=== PATIENT | male | born 1980 | race Caucasian/White ===

== ENCOUNTER 2016-10-17 13:54 | Emergency (ER) | payer SELFPAY ==
[~2016-10-17] VITALS: Ht 182.9 cm; Wt 89.6 kg
[~2016-10-17 13:54] MED LIST: AMOX875T PO
[2016-10-17 14:02] VITALS: BP 118/80; PULSE 85; RESP 14; TEMP 98.2; O2SAT 98
[2016-10-17] MEDS ORDERED: SODIUM CHLOR 0.9% 1000 ML INJ 1,000 ML IV ONE (14:23)
[2016-10-17] MEDS ORDERED: SODIUM CHLORIDE 0.9% FLUSH 10 ML FLUSH IVF PRN (14:30)
[2016-10-17] MEDS ORDERED: DEXAMETHASONE SOD PHOS 4 MG/ML VIAL IM ONE (14:30)
[2016-10-17 14:40] VITALS: O2SAT 98
[2016-10-17 14:47] LABS: AUTOMATED NEUTROPHIL # 15.1 TH/MM3 (1.8-7.7); BASOPHIL # 0.2 TH/MM3 (0-0.2); BASOPHIL % 1.1 % (0.0-2.0); EOSINOPHIL # 0.1 TH/MM3 (0-0.4); EOSINOPHIL % 0.4 % (0.0-4.0); HEMATOCRIT 49.4 % (39.0-51.0); LYMPH % 7.5 % (9.0-44.0); LYMPHOCYTE # 1.3 TH/MM3 (1.0-4.8); MEAN CELL VOLUME 84.1 FL (80.0-100.0); MEAN CORPUSCULAR HEMOGLOBIN 27.8 PG (27.0-34.0); PLATELET COUNT 224 TH/MM3 (150-450); RED BLOOD COUNT 5.88 MIL/MM3 (4.50-5.90); RED CELL DISTRIBUTION WIDTH 12.6 % (11.6-17.2); WHITE BLOOD COUNT 17.8 TH/MM3 (4.0-11.0)
--- NOTE | 2016-10-17 14:48 | RADHPO ---
EXAM DATE/TIME: 10/17/2016 14:29 [facility] COMPARISON: No previous studies available for comparison. INDICATIONS : Short of breath MEDICAL HISTORY : Asthma SURGICAL HISTORY : None. ENCOUNTER: Initial ACUITY: 3 weeks PAIN SCORE: 0/10 LOCATION: Bilateral chest FINDINGS: A single view of the chest demonstrates the lungs to be symmetrically aerated without evidence of mas s, infiltrate or effusion. The cardiomediastinal contours are unremarkable. Osseous structures are intact. CONCLUSION: Normal examination for a patient of this age. Jamey Gtz MD on October 17, 2016 at 14:45 Board Certified Radiologist. This report was verified electronically.
[2016-10-17] MEDS: RESP: ALBUTEROL 2.5 MG/IPRATROPIUM 0.5 MG NEB (SCH) INH (14:51)
[2016-10-17 14:53] VITALS: O2SAT 98
[2016-10-17 14:55] LABS: POTASSIUM 3.7 MEQ/L (3.5-5.1)
[2016-10-17 14:58] LABS: BICARBONATE 28.4 MEQ/L (21.0-32.0); HEMO FLAGS DIFF FINAL; MAGNESIUM 2.4 MG/DL (1.5-2.5)
[2016-10-17] MEDS ORDERED: DEXAMETHASONE SOD PHOS 4 MG/ML VIAL IV PUSH ONE (15:00)
[2016-10-17] MEDS ORDERED: ALBUAER3 INH (15:07)
--- NOTE | 2016-10-17 15:08 | PD ---
HPI Chief Complaint: Syncope/Near-Syncope Time Seen by Provider: 14:23 Travel History International Travel<30 days: No Contact w/Intl Traveler<30days: No Traveled to known affect area: No History of Present Illness HPI 36-year-old male reports coughing up phlegm for the past 3 weeks or so. He's had no fever. He's had no chest pain. At times he does feel short of breath. He reports a remote history of asthma. He quit smoking about a month ago. Today while working with a chain saw he loss consciousness and fell to the ground for a second. No similar prior episode has occurred. He did not injure himself with the chain saw. PFSH Past Medical History Asthma: Yes (As child) Anxiety: Yes Diminished Hearing: No Psychiatric: Yes (INTERMITTENT EXPLOSIVE D/O) Tetanus Vaccination: > 5 Years Influenza Vaccination: No Past Surgical History Surgical History: No Previous Surgery Social History Alcohol Use: Yes (Occ.) Tobacco Use: No Substance Use: Yes (Marijuana occ.) Allergies-Medications (Allergen,Severity, Reaction): Coded Allergies: No Known Allergies (Unverified , 10/17/16) Reported Meds & Prescriptions Reported Meds & Active Scripts Active Azithromycin 250 Mg Tab 250 Mg PO DIRECTED Take 2 tabs (500 mg) on day 1 then 1 tab daily x 4 days. Proair Hfa 8.5 GM Inh (Albuterol Sulfate) 90 Mcg/Act Aer 2 Puff INH Q6H PRN 108 mcg/actuation Review of Systems Except as stated in HPI: all other systems reviewed are Neg General / Constitutional: No: Fever Cardiovascular: Positive: Syncope Respiratory: Positive: Cough Physical Exam Narrative GENERAL: 36-year-old male well nourished well-developed SKIN: Focused skin assessment warm/dry. HEAD: Atraumatic. Normocephalic. EYES: Pupils equal and round. No scleral icterus. No injection or drainage. ENT: No nasal bleeding or discharge. Mucous membranes pink and moist. NECK: Trachea midline. No JVD. CARDIOVASCULAR: Regular rate and rhythm. No murmur appreciated. RESPIRATORY: No accessory muscle use. Clear to auscultation. Breath sounds equal bilaterally. GASTROINTESTINAL: Abdomen soft, non-tender, nondistended. Hepatic and splenic margins not palpable. MUSCULOSKELETAL: No obvious deformities. No clubbing. No cyanosis. No edema. NEUROLOGICAL: Awake and alert. No obvious cranial nerve deficits. Motor grossly within normal limits. Normal speech. PSYCHIATRIC: Appropriate mood and affect; insight and judgment normal. Data Data Last Documented VS Vital Signs Date Time Temp Pulse Resp B/P Pulse Ox O2 Delivery O2 Flow Rate FiO2 10/17/16 15:35 82 16 122/76 99 Room Air 10/17/16 14:53 21 10/17/16 14:02 98.2 Vital signs reviewed Orders Electrocardiogram (10/17/16 14:23) Basic Metabolic Panel (Bmp) (10/17/16 14:23) Complete Blood Count With Diff (10/17/16 14:23) Magnesium (Mg) (10/17/16 14:23) Chest, Single Ap (10/17/16:23) Ecg Monitoring (10/17/16:23) Iv Access Insert/Monitor (10/17/16:23) Oximetry (10/17/16 14:23) Sodium Chloride 0.9% Flush (Ns Flush) (10/17/16 14:30) Sodium Chlor 0.9% 1000 Ml Inj (Ns 1000 M (10/17/16 14:23) Albuterol-Ipratropium Neb (Duoneb Neb) (10/17/16 14:30) Dexamethasone Inj (Decadron Inj) (10/17/16 14:30) Dexamethasone Inj (Decadron Inj) (10/17/16 15:00) Labs Laboratory Tests Test 10/17/16 14:40 White Blood Count 17.8 TH/MM3 Red Blood Count 5.88 MIL/MM3 Hemoglobin 16.3 GM/DL Hematocrit 49.4 % Mean Corpuscular Volume 84.1 FL Mean Corpuscular Hemoglobin 27.8 PG Mean Corpuscular Hemoglobin 33.0 % Concent Red Cell Distribution Width 12.6 % Platelet Count 224 TH/MM3 Mean Platelet Volume 8.4 FL Neutrophils (%) (Auto) 85.0 % Lymphocytes (%) (Auto) 7.5 % Monocytes (%) (Auto) 6.0 % Eosinophils (%) (Auto) 0.4 % Basophils (%) (Auto) 1.1 % Neutrophils # (Auto) 15.1 TH/MM3 Lymphocytes # (Auto) 1.3 TH/MM3 Monocytes # (Auto) 1.1 TH/MM3 Eosinophils # (Auto) 0.1 TH/MM3 Basophils # (Auto) 0.2 TH/MM3 CBC Comment DIFF FINAL Differential Comment Sodium Level 132 MEQ/L Potassium Level 3.7 MEQ/L Chloride Level 95 MEQ/L Carbon Dioxide Level 28.4 MEQ/L Anion Gap 9 MEQ/L Blood Urea Nitrogen 16 MG/DL Creatinine 1.60 MG/DL Estimat Glomerular Filtration 49 ML/MIN Rate Random Glucose 97 MG/DL Calcium Level 9.9 MG/DL Magnesium Level 2.4 MG/DL [facility] Medical Decision Making Medical Screen Exam Complete: Yes Emergency Medical Condition: Yes Medical Record Reviewed: Yes Differential Diagnosis Syncope, pneumonia, bronchitis, dehydration, arrhythmia Narrative Course CBC & BMP Diagram 10/17/16 14:40 EKG reveals a sinus rhythm at 80, normal axis and intervals Last 24 hours Impressions Chest X-Ray 10/17/16 1423 Signed Impressions: Service Date/Time: Monday, October 17, 2016 14:29 - CONCLUSION: Normal examination for a patient of this age. Jamey Gtz MD Patient reassessed at 3:15 PM. He reports feeling better after receiving breathing treatments. We'll send him home with albuterol and azithromycin. He received a liter of saline. We discussed the need for follow-up in about 3 weeks for repeat creatinine evaluation. Aggressive oral hydration at home discussed. Renal insufficiency d/w patient as well as necessity of follow up. Pt verbalized understanding. Diagnosis Primary Impression: Syncope and collapse Additional Impression: Cough Referrals: [facility] 2 weeks Primary Care Physician 2 days Additional Instructions: You have a choice when it comes to health care, and we are glad that you chose [facility]. Hopefully, we have met your expectations on today's visit. You are welcome to return to [facility] at any time, as we are committed to meeting the health care needs of our community. Med/Other Pt SpecificInfo: Prescription(s) given Scripts Azithromycin 250 Mg [id number] Mg PO DIRECTED #6 TAB Ref 0 Take 2 tabs (500 mg) on day 1 then 1 tab daily x 4 days. Prov:Kyler Amado MD 10/17/16 Albuterol 8.5 GM Inh (Proair Hfa 8.5 GM Inh)90 Mcg/Act Aer2 Puff INH Q6H PRN ( SHORTNESS OF BREATH) #1 INHALER Ref 0 108 mcg/actuation Prov:Kyler Amado MD 10/17/16 Disposition: 01 DISCHARGE HOME Condition: Stable Kyler Amado MD October 17, 2016 15:08
[2016-10-17] MEDS ORDERED: AZIT250T3 PO (15:31)
[2016-10-17 15:35] VITALS: BP 122/76; PULSE 82; RESP 16; O2SAT 99
--- NOTE | 2016-10-18 13:39 | EKG ---
Date Performed: 10/17/2016 Time Performed: 14:55:20 PTAGE: 36 years EKG: Sinus rhythm rSr'(V1) - probable normal variant Septal T wave changes are nonspecific Borderline ECG NO PREVIOUS TRACING DOCTOR: James Rinaldi Interpretating Date/Time 10/18/2016 13:38:41
== END 2016-10-17 15:45 | disposition home or self-care (01) ==
LOC: PHED 13:54
DX: R55 Syncope and collapse (principal); R05 Cough; N28.9 Disorder of kidney and ureter, unspecified; J45.909 Unspecified asthma, uncomplicated; F41.9 Anxiety disorder, unspecified; Z87.891 Personal history of nicotine dependence
CPT/HCPCS: 71010; 80048; 83735; 85025; 93005; 94664; 96374; 99285; J1100; J7030

== ENCOUNTER 2016-12-10 21:02 | Inpatient (IN) | payer SELFPAY ==
[~2016-12-10] VITALS: Ht 182.9 cm; Wt 90.7 kg
[~2016-12-10 21:02] MED LIST changes: +ALBUAER3 INH; -AMOX875T PO; +AZIT250T3 PO
[2016-12-10 21:04] VITALS: BP 130/71; PULSE 94; RESP 16; TEMP 98.6; O2SAT 100
--- NOTE | 2016-12-10 21:58 | PD ---
HPI Chief Complaint: Edema Time Seen by Provider: 21:57 Travel History International Travel<30 days: No Contact w/Intl Traveler<30days: No Traveled to known affect area: No History of Present Illness HPI 36 year old male presents to the emergency department for evaluation of worsening right sided facial abscess. Patient states he first noticed swelling to his right cheek approximately 3 days ago. He states this started as a palpable. He went to [facility] earlier today and was prescribed Bactrim. He had no lab work or imaging completed at that time. He states that he has taken 2 doses of the Bactrim. However, the abscess has tripled in size since he left [facility]. The patient denies any drainage from the area. He denies any dental pain. He does state that it is slightly difficult to swallow. Patient has no chronic medical problems. He is not taking any other medications other than Bactrim. The patient reports severe pain to the right cheek. No fevers or chills. PFSH Past Medical History Asthma: Yes (As child) Anxiety: Yes Diminished Hearing: No Psychiatric: Yes (INTERMITTENT EXPLOSIVE D/O) Social History Alcohol Use: Yes (Occ.) Tobacco Use: No Substance Use: Yes (Marijuana occ.) Allergies-Medications (Allergen,Severity, Reaction): Coded Allergies: No Known Allergies (Unverified , 12/10/16) Reported Meds & Prescriptions Reported Meds & Active Scripts Active Azithromycin 250 Mg Tab 250 Mg PO DIRECTED Take 2 tabs (500 mg) on day 1 then 1 tab daily x 4 days. Proair Hfa 8.5 GM Inh (Albuterol Sulfate) 90 Mcg/Act Aer 2 Puff INH Q6H PRN 108 mcg/actuation Review of Systems Except as stated in HPI: all other systems reviewed are Neg Physical Exam Narrative GENERAL: Well-nourished, well-developed male patient, ambulatory. Afebrile. SKIN: Focused skin assessment warm/dry. HEAD: Normocephalic. Patient has a 7 cm x 7 cm area of swelling to the right cheek without drainage. This is tender to palpation. ENT: Mucosa pink and moist. No erythema or exudates. No uvular edema. No uvular , palatal, or tonsillar deviation. Airway patent. Nasal turbinates appear normal without nasal blood, purulent drainage or septal hematoma. Bilateral tympanic membranes are clear without erythema or perforation. EYES: No scleral icterus. No injection or drainage. NECK: Supple, trachea midline. No JVD or lymphadenopathy. CARDIOVASCULAR: Regular rate and rhythm without murmurs, gallops, or rubs. RESPIRATORY: Breath sounds equal bilaterally. No accessory muscle use. Lungs sounds are clear to auscultation. GASTROINTESTINAL: Abdomen soft, non-tender, nondistended. MUSCULOSKELETAL: No cyanosis, or edema. BACK: Nontender without obvious deformity. No CVA tenderness. Data Data Last Documented VS Vital Signs Date Time Temp Pulse Resp B/P Pulse Ox O2 Delivery O2 Flow Rate FiO2 12/10/16 21:55 89 17 99 Room Air 12/10/16 21:04 98.6 130/71 Orders Iv Access Insert/Monitor (12/10/16 21:54) Complete Blood Count With Diff (12/10/16 21:54) Comprehensive Metabolic Panel (12/10/16 21:54) Blood Culture (12/10/16 21:54) Lactic Acid Sepsis Protocol (12/10/16 21:54) Ct Facial Bones W Iv Contrast (12/10/16 ) Clindamycin Inj (Cleocin Inj) (12/10/16 22:00) Ondansetron Inj (Zofran Inj) (12/10/16 22:00) Sodium Chlor 0.9% 1000 Ml Inj (Ns 1000 M (12/10/16 22:00) Hydromorphone (Dilaudid) (12/10/16 22:15) Hydromorphone Pf Inj (Dilaudid Pf Inj) (12/10/16 22:15) Labs Laboratory Tests Test 12/10/16 22:05 White Blood Count 13.8 TH/MM3 Red Blood Count 4.80 MIL/MM3 Hemoglobin 13.6 GM/DL Hematocrit 40.9 % Mean Corpuscular Volume 85.2 FL Mean Corpuscular Hemoglobin 28.3 PG Mean Corpuscular Hemoglobin 33.2 % Concent Red Cell Distribution Width 13.7 % Platelet Count 150 TH/MM3 Mean Platelet Volume 8.9 FL Neutrophils (%) (Auto) 73.3 % Lymphocytes (%) (Auto) 14.8 % Monocytes (%) (Auto) 8.1 % Eosinophils (%) (Auto) 3.5 % Basophils (%) (Auto) 0.3 % Neutrophils # (Auto) 10.1 TH/MM3 Lymphocytes # (Auto) 2.1 TH/MM3 Monocytes # (Auto) 1.1 TH/MM3 Eosinophils # (Auto) 0.5 TH/MM3 Basophils # (Auto) 0.0 TH/MM3 CBC Comment DIFF FINAL Differential Comment Sodium Level 140 MEQ/L Potassium Level 3.9 MEQ/L Chloride Level 106 MEQ/L Carbon Dioxide Level 25.7 MEQ/L Anion Gap 8 MEQ/L Blood Urea Nitrogen 16 MG/DL Creatinine 0.77 MG/DL Estimat Glomerular Filtration 115 ML/MIN Rate Random Glucose 97 MG/DL Lactic Acid Level 1.8 mmol/L Calcium Level 8.9 MG/DL Total Bilirubin 0.3 MG/DL Aspartate Amino Transf 14 U/L (AST/SGOT) Alanine Aminotransferase 21 U/L (ALT/SGPT) Alkaline Phosphatase 60 U/L Total Protein 6.5 GM/DL Albumin 3.5 GM/DL [facility] Medical Decision Making Medical Screen Exam Complete: Yes Emergency Medical Condition: Yes Medical Record Reviewed: Yes Differential Diagnosis Facial abscess versus cellulitis versus sepsis Narrative Course 36-year-old male presents to the emergency department for evaluation of worsening right facial swelling and pain. He has taken 2 doses of Bactrim. CBC , CMP, blood cultures 2, lactic acid are ordered and pending. CT of the facial bones with IV contrast is ordered and pending. Patient is given normal saline 1 L IV bolus, clindamycin 600 mg IV, Dilaudid 0.5 mg IV, Zofran 4 mg IV. CBC shows leukocytosis 13.8, neutrophils 73.3. CMP is unremarkable. Lactic acid is 1.8. CT is pending. My attending physician, Dr. Ospina, will resume care and disposition. Debbie Castillo Dec 10, 2016 21:58
[2016-12-10] MEDS ORDERED: CLINDAMYCIN INJ 600 MG in SODIUM CHLORIDE 0.9% INJ 100 ML IV ONE (22:00)
[2016-12-10] MEDS ORDERED: SODIUM CHLOR 0.9% 1000 ML INJ 1,000 ML IV ONE (22:00)
[2016-12-10] MEDS ORDERED: ONDANSETRON HCL 4 MG/2 ML VIAL IV PUSH ONE (22:00)
[2016-12-10] MEDS ORDERED: HYDROmorphone HCL 2 MG TAB PO ONE (22:15)
[2016-12-10] MEDS ORDERED: HYDROmorphone HCL PF 1 MG/ML VIAL IV PUSH ONE (22:15)
[2016-12-10 22:25] LABS: AUTOMATED NEUTROPHIL # 10.1 TH/MM3 (1.8-7.7); BASOPHIL % 0.3 % (0.0-2.0); EOSINOPHIL # 0.5 TH/MM3 (0-0.4); EOSINOPHIL % 3.5 % (0.0-4.0); HEMATOCRIT 40.9 % (39.0-51.0); HEMO FLAGS DIFF FINAL; LYMPH % 14.8 % (9.0-44.0); LYMPHOCYTE # 2.1 TH/MM3 (1.0-4.8); MEAN CELL VOLUME 85.2 FL (80.0-100.0); MEAN CORPUSCULAR HEMOGLOBIN 28.3 PG (27.0-34.0); MEAN CORPUSCULAR HGB CONC 33.2 % (32.0-36.0); MONO % 8.1 % (0.0-8.0); NEUT % 73.3 % (16.0-70.0); PLATELET COUNT 150 TH/MM3 (150-450); RED CELL DISTRIBUTION WIDTH 13.7 % (11.6-17.2); WHITE BLOOD COUNT 13.8 TH/MM3 (4.0-11.0)
[2016-12-10 22:38] LABS: ANION GAP 8 MEQ/L (5-15); AST (GOT) 14 U/L (15-37); BICARBONATE 25.7 MEQ/L (21.0-32.0); BLOOD UREA NITROGEN 16 MG/DL (7-18); CHLORIDE 106 MEQ/L (98-107); GLOMERULAR FILTRATION RATE 115 ML/MIN (>89); POTASSIUM 3.9 MEQ/L (3.5-5.1); SODIUM (NA) 140 MEQ/L (136-145)
[2016-12-10 22:41] LABS: ALKALINE PHOSPHATASE 60 U/L (45-117); ALT (GPT) 21 U/L (12-78); TOTAL BILIRUBIN ADULT 0.3 MG/DL (0.2-1.0)
--- NOTE | 2016-12-10 23:03 | PD ---
Physical Exam Date Seen by Provider: Dec 10, 2016 Narrative GENERAL: SKIN: Warm and dry. HEAD: Atraumatic. Normocephalic. EYES: Pupils equal and round. No scleral icterus. No injection or drainage. ENT: No nasal bleeding or discharge. Mucous membranes pink and moist. PATIENT HAS A 7X7CM NONFLUCTUANT, ERYTHEMATOUS, INDURATED, WARM TO TOUCH BUT NONDRAINING ABSCESS TO RIGHT FACE CHEEK NECK: Trachea midline. No JVD. CARDIOVASCULAR: Regular rate and rhythm. RESPIRATORY: No accessory muscle use. Clear to auscultation. Breath sounds equal bilaterally. GASTROINTESTINAL: Abdomen soft, non-tender, nondistended. Hepatic and splenic margins not palpable. MUSCULOSKELETAL: Extremities without clubbing, cyanosis, or edema. No obvious deformities. NEUROLOGICAL: Awake and alert. No obvious cranial nerve deficits. Motor grossly within normal limits. Five out of 5 muscle strength in the arms and legs. Normal speech. PSYCHIATRIC: Appropriate mood and affect; insight and judgment normal. Data Data Last Documented VS Vital Signs Date Time Temp Pulse Resp B/P Pulse Ox O2 Delivery O2 Flow Rate FiO2 12/10/16 21:55 89 17 99 Room Air 12/10/16 21:04 98.6 130/71 Orders Iv Access Insert/Monitor (12/10/16 21:54) Complete Blood Count With Diff (12/10/16 21:54) Comprehensive Metabolic Panel (12/10/16 21:54) Blood Culture (12/10/16 21:54) Lactic Acid Sepsis Protocol (12/10/16 21:54) Ct Facial Bones W Iv Contrast (12/10/16 ) Clindamycin Inj (Cleocin Inj) (12/10/16 22:00) Ondansetron Inj (Zofran Inj) (12/10/16 22:00) Sodium Chlor 0.9% 1000 Ml Inj (Ns 1000 M (12/10/16 22:00) Hydromorphone (Dilaudid) (12/10/16 22:15) Hydromorphone Pf Inj (Dilaudid Pf Inj) (12/10/16 22:15) Labs Laboratory Tests Test 12/10/16 22:05 White Blood Count 13.8 TH/MM3 Red Blood Count 4.80 MIL/MM3 Hemoglobin 13.6 GM/DL Hematocrit 40.9 % Mean Corpuscular Volume 85.2 FL Mean Corpuscular Hemoglobin 28.3 PG Mean Corpuscular Hemoglobin 33.2 % Concent Red Cell Distribution Width 13.7 % Platelet Count 150 TH/MM3 Mean Platelet Volume 8.9 FL Neutrophils (%) (Auto) 73.3 % Lymphocytes (%) (Auto) 14.8 % Monocytes (%) (Auto) 8.1 % Eosinophils (%) (Auto) 3.5 % Basophils (%) (Auto) 0.3 % Neutrophils # (Auto) 10.1 TH/MM3 Lymphocytes # (Auto) 2.1 TH/MM3 Monocytes # (Auto) 1.1 TH/MM3 Eosinophils # (Auto) 0.5 TH/MM3 Basophils # (Auto) 0.0 TH/MM3 CBC Comment DIFF FINAL Differential Comment Sodium Level 140 MEQ/L Potassium Level 3.9 MEQ/L Chloride Level 106 MEQ/L Carbon Dioxide Level 25.7 MEQ/L Anion Gap 8 MEQ/L Blood Urea Nitrogen 16 MG/DL Creatinine 0.77 MG/DL Estimat Glomerular Filtration 115 ML/MIN Rate Random Glucose 97 MG/DL Lactic Acid Level 1.8 mmol/L Calcium Level 8.9 MG/DL Total Bilirubin 0.3 MG/DL Aspartate Amino Transf 14 U/L (AST/SGOT) Alanine Aminotransferase 21 U/L (ALT/SGPT) Alkaline Phosphatase 60 U/L Total Protein 6.5 GM/DL Albumin 3.5 GM/DL [facility] Medical Record Reviewed: Yes Supervised Visit with ENRRIQUE: No Narrative Course PATIENT HAS A MODERATE RIGHT FACIAL ABSCESS WILL REQUIRE IV ABX AND POSSIBLY ENT /PLASTICS TO DRAIN. PT WILL BE ADMITTED TO [facility] FOR FURTHER CARE Diagnosis Primary Impression: MODERATE RIGHT SIDED FACIAL ABSCESS Admitting Information Admitting Physician Requests: Observation Madhu Ospina MD Dec 10, 2016 23:03
[2016-12-11] VITALS: BP 121/68; PULSE 77; RESP 18; TEMP 98.8; O2SAT 98
[2016-12-11] MEDS ORDERED: IOHEXOL 350 MG/ML 10 ML VIAL (for RAD DIAG) IV ONE (00:29)
[2016-12-11] MEDS ORDERED: ACETAMINOPHEN 325 MG TAB PO PRN ×2 (00:30)
[2016-12-11] MEDS ORDERED: HYDROmorphone HCL PF 1 MG/ML VIAL IV PRN (00:30)
[2016-12-11] MEDS ORDERED: NALOXONE HCL 0.4 MG/ML AMP IV PRN (00:30)
[2016-12-11] MEDS ORDERED: SODIUM CHLORIDE 0.9% FLUSH 10 ML FLUSH IV FLUSH PRN (00:30)
[2016-12-11] MEDS ORDERED: MAGNESIUM HYDROXIDE SUSP 30 ML CUP PO PRN (00:30)
[2016-12-11] MEDS ORDERED: LACTULOSE SYRUP 20 GM/30 ML CUP PO PRN (00:30)
[2016-12-11] MEDS ORDERED: ONDANSETRON HCL 4 MG/2 ML VIAL IVP PRN (00:30)
[2016-12-11] MEDS ORDERED: BISACODYL 10 MG SUPP RECTAL PRN (00:30)
[2016-12-11] MEDS ORDERED: SENNOSIDES 8.6 MG TAB PO PRN (00:30)
--- NOTE | 2016-12-11 00:47 | HHI.HP ---
[facility] Service [facility] Primary Care Physician No Primary Care Physician Admission Diagnosis FACIAL ABSCESS Diagnoses: Chief Complaint: facial swelling and pain Travel History International Travel<30 Days: No Contact w/Intl Traveler <30 Da: No Traveled to Known Affected Are: No History of Present Illness Written by Victoria Soriano, acting as scribe for Dr. Wilson] on 12/11/16 at 00: 47. 36 y/o male with no medical history presents to the ED with complaints of right cheek swelling and pain. Patient states he has a pimple that he tried to pop and his face began to swell. He went to [facility] and was diagnosed with cellulitis and sent home on Bactrim. Patient states he took 2 doses and the pain worsened so he came here. He only has noticed a little clear discharge when he tried to pop it. Denies any fevers, but states he has had chills. Denies any chest pain, or sob. Review of Systems Constitutional: COMPLAINS OF: Chills, DENIES: Fever Respiratory: DENIES: Cough, Sputum production, Shortness of breath Cardiovascular: DENIES: Chest pain, Lower Extremity Edema Gastrointestinal: DENIES: Nausea, Vomiting Genitourinary: DENIES: Hematuria, Dysuria Musculoskeletal: DENIES: Back pain, Neck pain Integumentary: DENIES: Rash Hematologic/lymphatic: DENIES: Lymphadenopathy Immunologic/allergic: DENIES: Urticaria Neurologic: DENIES: Headache Past Family Social History Past Medical History childhood asthma, but states he grew out of it. Past Surgical History Patient denies any surgical history Reported Medications Reported Meds & Active Scripts Active Azithromycin 250 Mg Tab 250 Mg PO DIRECTED Take 2 tabs (500 mg) on day 1 then 1 tab daily x 4 days. Proair Hfa 8.5 GM Inh (Albuterol Sulfate) 90 Mcg/Act Aer 2 Puff INH Q6H PRN 108 mcg/actuation Allergies: Coded Allergies: No Known Allergies (Unverified , 12/10/16) Active Ordered Medications Current Medications Medications (Trade) Dose Ordered Sig/Julieta Route Start Time Stop Time Status Last Admin (NS Flush) 2 ml UNSCH PRN IV FLUSH 12/11/16 00:30 (NS Flush) 2 ml BID IV FLUSH 12/11/16 09:00 (Tylenol) 650 mg Q4H PRN PO 12/11/16 00:30 (Zofran Inj) 4 mg Q6H PRN IVP 12/11/16 00:30 (Tylenol) 650 mg Q6H PRN PO 12/11/16 00:30 (Dilaudid Pf Inj) 0.2 mg Q3H PRN IV 12/11/16 00:30 (Dilaudid Pf Inj) 0.5 mg Q3H PRN IV 12/11/16 00:30 (Narcan Inj) 0.4 mg UNSCH PRN IV 12/11/16 00:30 (Milk Of Magnesia Liq) 30 ml Q12H PRN PO 12/11/16 00:30 (Senokot) 17.2 mg Q12H PRN PO 12/11/16 00:30 (Dulcolax Supp) 10 mg DAILY PRN RECTAL 12/11/16 00:30 Lactulose 30 ml 30 ml DAILY PRN PO 12/11/16 00:30 (Cleocin Inj/NS Inj) 104 ml @ 208 mls/hr Q6H IV 12/11/16 04:00 Family History Grandmother: [place] Social History Tobacco use: 1PPD Alcohol use: rarely Illicit drug use: marijuana Physical Exam Vital Signs Vital Signs Date Time Temp Pulse Resp B/P Pulse Ox O2 Delivery O2 Flow Rate FiO2 12/10/16 21:55 89 17 99 Room Air 12/10/16 21:04 98.6 94 16 130/71 100 Room Air Physical Exam GENERAL: This is a well-nourished, well-developed patient, in no apparent distress. SKIN: No rashes, ecchymoses or lesions. Cool and dry. Rt cheek with erythema and swelling. HEAD: Atraumatic. Normocephalic. No temporal or scalp tenderness. EYES: Pupils equal round and reactive. Extraocular motions intact. No scleral icterus. No injection or drainage. ENT: Nose without bleeding, purulent drainage or septal hematoma. Throat without erythema, tonsillar hypertrophy or exudate. Uvula midline. Airway patent. NECK: Trachea midline. No JVD or lymphadenopathy. Supple, nontender, no meningeal signs. CARDIOVASCULAR: Regular rate and rhythm without murmurs, gallops, or rubs. RESPIRATORY: Wheezing throughout, Breath sounds equal bilaterally. No rales, or rhonchi. GASTROINTESTINAL: Abdomen soft, non-tender, nondistended. No hepato-splenomegaly , or palpable masses. No guarding. MUSCULOSKELETAL: Extremities without clubbing, cyanosis, or edema. No joint tenderness, effusion, or edema noted. No calf tenderness. NEUROLOGICAL: Awake and alert. Motor and sensory grossly within normal limits. Normal speech. Laboratory Laboratory Tests Test 12/10/16 22:05 White Blood Count 13.8 Red Blood Count 4.80 Hemoglobin 13.6 Hematocrit 40.9 Mean Corpuscular Volume 85.2 Mean Corpuscular Hemoglobin 28.3 Mean Corpuscular Hemoglobin 33.2 Concent Red Cell Distribution Width 13.7 Platelet Count 150 Mean Platelet Volume 8.9 Neutrophils (%) (Auto) 73.3 Lymphocytes (%) (Auto) 14.8 Monocytes (%) (Auto) 8.1 Eosinophils (%) (Auto) 3.5 Basophils (%) (Auto) 0.3 Neutrophils # (Auto) 10.1 Lymphocytes # (Auto) 2.1 Monocytes # (Auto) 1.1 Eosinophils # (Auto) 0.5 Basophils # (Auto) 0.0 CBC Comment DIFF FINAL Differential Comment Sodium Level 140 Potassium Level 3.9 Chloride Level 106 Carbon Dioxide Level 25.7 Anion Gap 8 Blood Urea Nitrogen 16 Creatinine 0.77 Estimat Glomerular Filtration 115 Rate Random Glucose 97 Lactic Acid Level 1.8 Calcium Level 8.9 Total Bilirubin 0.3 Aspartate Amino Transf 14 (AST/SGOT) Alanine Aminotransferase 21 (ALT/SGPT) Alkaline Phosphatase 60 Total Protein 6.5 Albumin 3.5 Date/Time Procedure Status Source Growth 12/10/16 22:05 Aerobic Blood Culture Received Blood Peripheral Pending 12/10/16 22:05 Anaerobic Blood Culture Received Blood Peripheral Pending Result Diagram: 12/10/16220412/10/162204 Assessment and Plan Problem List: (1) Facial cellulitis ICD Code: L03.211 Status: Acute (2) Leukocytosis ICD Code: D72.829 Status: Acute Assessment and Plan 36 y/o male with no medical history presents to the ED with complaints of right cheek swelling and pain. Facial cellulitis Maxillofacial CT shows no fracture, no abscess -Pain management with IV Dilaudid -IV clindamycin Leukocytosis, WBCs 13.8, suspected due to facial cellulitis -Tylenol for fevers -CBC in a.m. -Blood cultures pending -Continue antibiotics as above DVT prophylaxis: SCDs This note was transcribed by lulu Soriano. I, Dr. Tylor Lester personally performed the history, physical exam, and medical decision making; and confirmed the accuracy of the information in the transcribed note. Authenticated by Dr. Tylor Lester on 12/11/16 at 04:09. Discussed Condition With Patient Victoria Soriano Dec 11, 2016 00:47 Tylor Lester MD Dec 11, 2016 04:09
--- NOTE | 2016-12-11 02:40 | RADRPT ---
EXAM DATE/TIME: 12/11/2016 00:27 [facility] COMPARISON: No previous studies available for comparison. INDICATIONS : Right facial swelling and pain; possible abscess. IV CONTRAST: 70 cc Omnipaque 350 (iohexol) IV RADIATION DOSE: 49.06 CTDIvol (mGy) MEDICAL HISTORY : None SURGICAL HISTORY : None. ENCOUNTER: Initial ACUITY: 3 days PAIN SCALE: 5/10 LOCATION: Right facial TECHNIQUE: Volumetric scanning of the facial bones was performed. Using automated exposure control and adjustme nt of the mA and/or kV according to patient size, radiation dose was kept as low as reasonably achiev able to obtain optimal diagnostic quality images. DICOM format image data is available electronicall y for review and comparison. FINDINGS: ORBITS: The orbital and infraorbital osseous structures are intact. The retroconal structures have a normal configuration. No radiopaque foreign bodies are seen. NASAL BONE: The nasal bone and maxillary spine are intact ZYGOMATIC ARCHES: Symmetric without evidence of fracture. SINUSES: The maxillary, ethmoid and frontal sinuses are intact. No air-fluid levels seen. Mucosal thickening within the floor the right maxillary sinus NASAL CAVITY: The nasal septum is deviated to the left. The lacrimal ducts are intact. SOFT TISSUES: No radiopaque foreign bodies seen. Facial soft-tissue swelling is seen. INTRACRANIAL: No intracranial air seen. CRIBIFORM PLATE: Grossly intact. CONCLUSION: 1. No facial fracture Griffin Sung MD on December 11, 2016 at 1:27 Board Certified Radiologist. This report was verified electronically.
[2016-12-11] MEDS: CLINDAMYCIN INJ 600 MG in SODIUM CHLORIDE 0.9% INJ 100 ML IV SCH ×4 (03:58→21:34)
[2016-12-11] MEDS: HYDROmorphone HCL PF 1 MG/ML VIAL IV PRN ×5 (03:59→22:53)
[2016-12-11 04:43] VITALS: BP 113/64; PULSE 60; RESP 18; TEMP 98.5; O2SAT 98
[2016-12-11 05:16] LABS: AUTOMATED NEUTROPHIL # 10.3 TH/MM3 (1.8-7.7); BASOPHIL % 0.2 % (0.0-2.0); EOSINOPHIL # 0.5 TH/MM3 (0-0.4); EOSINOPHIL % 3.5 % (0.0-4.0); HEMATOCRIT 37.7 % (39.0-51.0); HEMO FLAGS DIFF FINAL; LYMPH % 12.7 % (9.0-44.0); LYMPHOCYTE # 1.8 TH/MM3 (1.0-4.8); MEAN CORPUSCULAR HEMOGLOBIN 28.1 PG (27.0-34.0); MONO % 9.9 % (0.0-8.0); NEUT % 73.7 % (16.0-70.0); PLATELET COUNT 140 TH/MM3 (150-450); RED BLOOD COUNT 4.44 MIL/MM3 (4.50-5.90); RED CELL DISTRIBUTION WIDTH 13.4 % (11.6-17.2)
[2016-12-11 07:04] VITALS: BP 120/66; PULSE 78; RESP 14; TEMP 99.1; O2SAT 97
[2016-12-11] MEDS: SODIUM CHLORIDE 0.9% FLUSH 10 ML FLUSH IV FLUSH SCH ×2 (08:56→21:49)
[2016-12-11] MEDS ORDERED: ACETAMINOPHEN/HYDROcodone 325 MG/7.5 MG TAB PO PRN (10:15)
[2016-12-11] MEDS ORDERED: ACETAMINOPHEN/HYDROcodone 325 MG/5 MG TAB PO PRN (10:15)
--- NOTE | 2016-12-11 10:27 | HHI.PR ---
Subjective Remarks Follow up for facial cellulitis. The patient reports continued right facial swelling, warmth, and pain; not much improved overnight after receiving 2 doses of IV antibiotics. Denies any drainage. He reports feeling feverish but no documented fevers, Tmax 99.1. The patient feels the swelling is slightly worse around the right eye today, but he denies any pain of the eyes with movement and EOM are intact. He denies any problem chewing or swallowing. He only took 2 doses of the Bactrim he was prescribed prior to coming to the hospital. Objective Vitals Vital Signs Date Time Temp Pulse Resp B/P Pulse Ox O2 Delivery O2 Flow Rate FiO2 12/11/16 07:04 99.1 78 14 120/66 97 12/11/16 04:43 98.5 60 18 113/64 98 12/11/16 00:00 98.8 77 18 121/68 98 12/10/16 21:55 89 17 99 Room Air 12/10/16 21:04 98.6 94 16 130/71 100 Room Air Result Diagram: 12/11/16 0430 12/10/16 2205 Imaging Last Impressions Maxillofacial CT 12/10/16 0000 Signed Impressions: Service Date/Time: Sunday, December 11, 2016 00:27 - CONCLUSION: 1. No facial fracture Griffin Sung MD Objective Remarks GENERAL: Well-nourished, well-developed middle aged male patient in [facility]. SKIN: Warm and dry. Diffuse Right facial/buccal erythema,edema,warmth, extended into the right preseptal area and down into the right anterior cervical area. HEENT: Normocephalic. Atraumatic. Pupils equal and round. EOMI and nontender with movements. No injection or drainage. Mucous membranes pink and moist. NECK: Supple. Trachea midline. CARDIOVASCULAR: Regular rate and rhythm. S1, S2 noted. No murmur appreciated. RESPIRATORY: No accessory muscle use. Clear to auscultation. Breath sounds equal bilaterally. GASTROINTESTINAL: Abdomen soft, non-tender, nondistended. Normoactive bowel sounds x4. MUSCULOSKELETAL: No obvious deformities. Extremities without clubbing, cyanosis , or edema. NEUROLOGICAL: Awake and alert. No obvious cranial nerve deficits. Motor grossly within normal limits. Normal speech. PSYCHIATRIC: Appropriate mood and affect; insight and judgment normal. Medications and IVs Current Medications Medications (Trade) Dose Ordered Sig/Julieta Route Start Time Stop Time Status Last Admin (NS Flush) 2 ml UNSCH PRN IV FLUSH 12/11/16 00:30 12/11/16 03:58 (NS Flush) 2 ml BID IV FLUSH 12/11/16 09:00 (Tylenol) 650 mg Q4H PRN PO 12/11/16 00:30 (Zofran Inj) 4 mg Q6H PRN IVP 12/11/16 00:30 (Tylenol) 650 mg Q6H PRN PO 12/11/16 00:30 (Narcan Inj) 0.4 mg UNSCH PRN IV 12/11/16 00:30 (Milk Of Magnesia Liq) 30 ml Q12H PRN PO 12/11/16 00:30 (Senokot) 17.2 mg Q12H PRN PO 12/11/16 00:30 (Dulcolax Supp) 10 mg DAILY PRN RECTAL 12/11/16 00:30 Lactulose 30 ml 30 ml DAILY PRN PO 12/11/16 00:30 (Cleocin Inj/NS Inj) 104 ml @ 208 mls/hr Q6H IV 12/11/16 04:00 12/11/16 08:56 (Toradol Inj) 15 mg Q6HR IV PUSH 12/11/16 12:00 12/15/16 11:59 (Dilaudid Pf Inj) 0.5 mg Q4H PRN IV 12/11/16 13:30 UNV ([place] 5-325 Mg) 1 tab Q4H PRN PO 12/11/16 10:15 UNV ([place] 7.5-325 Mg) 1 tab Q4H PRN PO 12/11/16 10:15 UNV A/P Problem List: (1) Facial cellulitis ICD Code: L03.211 Status: Acute (2) Leukocytosis ICD Code: D72.829 Status: Acute Assessment and Plan 36 y/o male with no medical history presents to the ED with complaints of right cheek swelling and pain. Severe Facial Cellulitis with Sepsis: Maxillofacial CT w/IV contrast images reviewed and discussed with radiologist, does not show abscess, only significant soft tissue swelling/cellulitis. Patient met sepsis criteria upon arrival with WBC 13.8K and tachycardic HR in 90s, however clinically stable and lactic acid 1.8. -Pain management with [place] prn and IV Dilaudid prn breakthrough pain -Continue antibiotics IV clindamycin -Monitor blood cultures -Still with significant swelling today, started on IV Toradol 15mg q6h scheduled for inflammation -Monitor closely -1330hrs: patient and mother now reporting worsening swelling and pain/ pressure behind the right eye -check facial soft tissue MRI with and without contrast -start on IV Decadron 4mg q8h -discussed with Dr. Finney who also saw the patient, consider infectious disease consultation tomorrow if not much improvement -1520hrs: Facial Soft Tissue MRI showed extensive cellulitis right face/ cheek with small 1.5cm fluid signal, may represent small abscess. -will consult oral/facial surgeon Dr. Medina Leukocytosis: WBCs 13.8, suspected due to facial cellulitis -Tylenol prn fevers -CBC shows continued leukocytosis with WBC 14K -Blood cultures pending -Continue antibiotics as above DVT prophylaxis: SCDs Discharge Planning Discussed with case management, meets inpatient criteria, will change to inpatient. Likely discharge in 2-3 days. Attending Statement The exam, history, and the medical decision-making described in the above note were completed with the assistance of the mid-level provider. I reviewed and agree with the findings presented. I attest that I had a [id number] encounter with the patient on the same day, and personally performed and documented my assessment and findings in the medical record. Patient seen and examined. He reports no cord is not helping with the facial pain. No fevers or chills. No problems swallowing. On exam, the patient has a small dried wound over the right cheek. There is impressing surrounding swelling extending below the right eye down to the neck. There is tender submental lymphadenopathy. Agree with plan as above. Add Decadron to help with swelling. Since patient reported worsening of symptoms, MRI has been ordered. Continue to monitor closely. Continue antibiotics. Follow cultures. If no improvement by tomorrow , would consult infectious disease. Zina Flood PA-C Dec 11, 2016 10:27 Katrin Finney MD Dec 11, 2016 15:24
[2016-12-11 11:06] VITALS: BP 121/66; PULSE 67; RESP 16; TEMP 99.2; O2SAT 98
[2016-12-11] MEDS: REMOVE OLD PATCH T-DERMAL SCH (11:30)
[2016-12-11] MEDS: NICOTINE 21 MG/24 HR PATCH T-DERMAL SCH (12:03)
[2016-12-11] MEDS: KETOROLAC TROMETHAMINE 30 MG/ML (IVP) VIAL IV PUSH SCH ×3 (12:04→22:53)
[2016-12-11] MEDS: DEXAMETHASONE SOD PHOS 4 MG/ML VIAL IV PUSH SCH ×2 (14:00→21:33)
[2016-12-11] MEDS ORDERED: DEXAMETHASONE SOD PHOS 4 MG/ML VIAL IV PUSH SCH (14:00)
[2016-12-11] MEDS ORDERED: GADODIAMIDE PF 287 MG/ML 20 ML VIAL (for RAD MRI) IV ONE (14:13)
--- NOTE | 2016-12-11 14:47 | RADRPT ---
EXAM DATE/TIME: 12/11/2016 13:47 [place] COMPARISON: CT FACIAL BONES W CONTRAST, December 11, 2016, 0:27. INDICATIONS : Abscess. CONTRAST: 15 cc Omniscan (gadodiamide) IV MEDICAL HISTORY : None. SURGICAL HISTORY : None. ENCOUNTER: Initial ACUITY: 4-6 days PAIN SCORE: 5/10 LOCATION: Right Face TECHNIQUE: Multi-weighted, multi-axial MR images of the facial soft tissue both before and after the administrat ion of intravenous contrast. FINDINGS: Extensive inflammatory changes around the right face characteristic of cellulitis. There is a focal, 1.6 cm area of diminished T1 signal intensity, increased inversion recovery signal in the regional en hancement in the anterior right cheek which may represent a small fluid collection/early abscess. No mass lesions. CONCLUSION: 1. MR findings characteristic of extensive cellulitis in the right face/cheek region. 2. Small, 1.5 cm area of fluid signal intensity in the anterior right cheek which may represent a sma ll abscess. This appears loculated. Korey Toledo MD on December 11, 2016 at 14:39 Board Certified Radiologist. This report was verified electronically.
[2016-12-11 16:00] VITALS: BP 142/84; PULSE 67; RESP 20; TEMP 98.9; O2SAT 98
[2016-12-11] MEDS: oxyCODONE/ACETAMINOPHEN 7.5 MG/325 MG TAB PO PRN ×2 (17:18→23:41)
[2016-12-11] MEDS ORDERED: LIDOCAINE 2%/EPINEPHrine 1:100,000 30ML MDV OTHER SCH (18:30)
--- NOTE | 2016-12-11 19:22 | HHI.PR ---
Immediate Post Op Note Procedure Date: Dec 11, 2016 Pre Op Diagnosis: right facial cellulitis/abscess Post Op Diagnosis: [place] Surgeon: Jhonathan Medina Operations Director(s): pt's nurse irvin Procedure: I&D right facial cellulitis/abscess Findings: pus Complications: none Specimen(s) removed: pus - sent for culture Estimated blood loss: minimal Anesthesia: Local (2%lidocaine with 1:100,000 epi 2cc) Drains: [place] (1/4 inch x 1) Patient Condition: Good Date/Time of Procedure: SEE SURGICAL CARE RECORD Jhonathan Medina DMD Dec 11, 2016 19:22
--- NOTE | 2016-12-11 19:33 | MB ---
cc: LOUISE MEDINA DMD DATE OF CONSULTATION 12/11/2016 REASON FOR CONSULTATION Right facial cellulitis. HISTORY OF THE PRESENT ILLNESS This is a 36-year-old male with a past history of popping pimples, who recently popped a pimple on the right side of his face about four days ago. He then proceeded to [facility] in [facility] yesterday morning as the swelling began to get bigger. The patient indicates that they sent him home with Bactrim and did not do anything there. So then yesterday evening the welling on right side of the face got bigger and bigger so he proceeded to come here to [place]. He reported this morning that some little discharge did come out of the site. I have seen and examined the patient this evening. The patient's nurses are at bedside. Alert, awake and oriented x3. Denies any fever, chills, nausea, vomiting, shortness of breath and difficulty breathing or difficulty speaking. PAST MEDICAL HISTORY Denies. MEDICATIONS Denies. ALLERGIES Denies. SOCIAL HISTORY Denies any alcohol, tobacco or any illicit drug use. PHYSICAL EXAMINATION HEENT: Exam of the face on the right side shows a moderate amount of facial swelling that is noted. It is tender to palpation. And there is an area that is appears to be soft, right in the center where the pimple was popped. There is erythema around that site. The swelling is and the rest of the cellulitis is soft on his right side of the face. No gross tenderness to palpation. It is well-circumscribed and just appears to be just localized to the right side of his face, this appeared to his mandible. Some areas are still firm around this site. The eyes are open. No neck edema noted. Trachea midline. IMAGING CT scan of the facial bones shows a swelling on the right side of the face and an area of a collection that I could see on his right cheek. This appears to be the collection / abscess. LABORATORY DATA White count is 13.8. H&H is 13.6, hematocrit is 14.9 with platelets of 150. Temperature is 98.9, pulse is 67, respiratory rate 20, blood pressure 142/84 with oxygen saturation of 98%. IMPRESSION AND PLAN This is a 36-year-old young male who is status post 4 days popping a pimple on the right side now presents with a right-sided facial cellulitis / abscess. We will plan to incise and drain and then get a culture depending on how much purulence comes out. Benefits, risks indication of the procedure, the procedure in detail and the options of no treatment including alternatives were discussed with this patient. Risks are not limited to any postop pain, infection, bleeding, damage to the adjacent soft tissue, hard tissue, anesthesia complications, recurrence of the infection, further surgical procedures as required. All questions and concerns were addressed. Consent is signed in the chart. Please note that the patient has been advised not to pop any more pimples. Louise Medina DMD RRT/ADY /7:15 PM /7:23 PM
[2016-12-11 20:00] VITALS: BP 138/72; PULSE 67; RESP 17; TEMP 98.1; O2SAT 97
[2016-12-11] MEDS: DOCUSATE SODIUM 50 MG/SENNA 8.6 MG TAB PO SCH (21:33)
[2016-12-12] VITALS: BP 112/59; PULSE 63; RESP 18; TEMP 97.3; O2SAT 93
[2016-12-12] MEDS: CLINDAMYCIN INJ 600 MG in SODIUM CHLORIDE 0.9% INJ 100 ML IV SCH ×3 (03:54→15:35)
[2016-12-12] MEDS: HYDROmorphone HCL PF 1 MG/ML VIAL IV PRN ×5 (03:55→22:15)
[2016-12-12 04:00] VITALS: BP 121/69; PULSE 58; RESP 18; TEMP 96; O2SAT 98
[2016-12-12] MEDS: DEXAMETHASONE SOD PHOS 4 MG/ML VIAL IV PUSH SCH (05:57)
[2016-12-12] MEDS: KETOROLAC TROMETHAMINE 30 MG/ML (IVP) VIAL IV PUSH SCH ×4 (05:58→23:25)
[2016-12-12] MEDS: oxyCODONE/ACETAMINOPHEN 7.5 MG/325 MG TAB PO PRN ×4 (06:02→20:02)
[2016-12-12 08:00] VITALS: BP 108/60; PULSE 62; RESP 16; TEMP 96.8; O2SAT 99
--- NOTE | 2016-12-12 08:47 | HHI.PR ---
Subjective Remarks The patient says that he feels a lot better. He says pain control is improved. He has less swelling on the right side of his face. He was able to sleep overnight. He has been tolerating diet. Discussed with nursing. He was anxious to go home. Objective Vitals Vital Signs Date Time Temp Pulse Resp B/P Pulse Ox O2 Delivery O2 Flow Rate FiO2 12/12/16 08:00 96.8 62 16 108/60 99 12/12/16 04:00 96.0 58 18 121/69 98 12/12/16 00:00 97.3 63 18 112/59 93 12/11/16 20:00 98.1 67 17 138/72 97 12/11/16 19:30 18 12/11/16 19:30 18 12/11/16 19:30 18 12/11/16 16:00 98.9 67 20 142/84 98 12/11/16 11:06 99.2 67 16 121/66 98 I/O 12/11/16 12/11/16 12/11/16 12/12/16 12/12/16 12/12/16 07:00 15:00 23:00 07:00 15:00 23:00 Intake Total 720 ml 480 ml Balance 720 ml 480 ml Intake Oral 720 ml 480 ml # Voids 6 4 Result Diagram: 12/11/16 0430 12/10/16 2205 Imaging Last Impressions Face MRI 12/11/16 0000 Signed Impressions: Service Date/Time: Sunday, December 11, 2016 13:47 - CONCLUSION: 1. MR findings characteristic of extensive cellulitis in the right face/cheek region. 2. Small , 1.5 cm area of fluid signal intensity in the anterior right cheek which may represent a small abscess. This appears loculated. Korey Toledo MD Maxillofacial CT 12/10/16 0000 Signed Impressions: Service Date/Time: Sunday, December 11, 2016 00:27 - CONCLUSION: 1. No facial fracture Griffin Sung MD Objective Remarks GENERAL: Well-nourished, well-developed patient in [facility]. SKIN: Warm and dry. Diffuse Right facial/buccal erythema,edema,warmth,extending into the right preseptal area and down into the right anterior cervical area. Bandage and drain in place. HEENT: Normocephalic. Atraumatic. Pupils equal and round. EOMI and nontender with movements. No injection or drainage. Mucous membranes pink and moist. NECK: Supple. Trachea midline. CARDIOVASCULAR: Regular rate and rhythm. S1, S2 noted. No murmur appreciated. RESPIRATORY: No accessory muscle use. Mild expiratory wheezing. GASTROINTESTINAL: Abdomen soft, non-tender, nondistended. Normoactive bowel sounds x4. MUSCULOSKELETAL: No obvious deformities. Extremities without clubbing, cyanosis , or edema. NEUROLOGICAL: Awake and alert. No obvious cranial nerve deficits. Motor grossly within normal limits. Normal speech. PSYCHIATRIC: Appropriate mood and affect; insight and judgment normal. Procedures I&D 12/11 Medications and IVs Current Medications Medications (Trade) Dose Ordered Sig/Julieta Route Start Time Stop Time Status Last Admin (NS Flush) 2 ml UNSCH PRN IV FLUSH 12/11/16 00:30 12/11/16 03:58 (NS Flush) 2 ml BID IV FLUSH 12/11/16 09:00 12/11/16 21:49 (Tylenol) 650 mg Q4H PRN PO 12/11/16 00:30 (Zofran Inj) 4 mg Q6H PRN IVP 12/11/16 00:30 (Tylenol) 650 mg Q6H PRN PO 12/11/16 00:30 (Narcan Inj) 0.4 mg UNSCH PRN IV 12/11/16 00:30 (Milk Of Magnesia Liq) 30 ml Q12H PRN PO 12/11/16 00:30 (Senokot) 17.2 mg Q12H PRN PO 12/11/16 00:30 (Dulcolax Supp) 10 mg DAILY PRN RECTAL 12/11/16 00:30 Lactulose 30 ml 30 ml DAILY PRN PO 12/11/16 00:30 (Cleocin Inj/NS Inj) 104 ml @ 208 mls/hr Q6H IV 12/11/16 04:00 12/12/16 03:54 (Toradol Inj) 15 mg Q6HR IV PUSH 12/11/16 12:00 12/15/16 11:59 12/12/16 05:58 (Dilaudid Pf Inj) 0.5 mg Q4H PRN IV 12/11/16 13:30 12/12/16 03:55 ([place] 5-325 Mg) 1 tab Q4H PRN PO 12/11/16 10:15 (Habitrol 21 Mg Patch.24 Hr) 1 patch DAILY T-DERMAL 12/11/16 11:30 12/11/16 12:03 Miscellaneous Information 1 DAILY T-DERMAL 12/11/16 11:30 (Decadron Inj) 4 mg Q8HR IV PUSH 12/11/16 14:00 12/12/16 05:57 (Percocet 7.5-325 Mg) 1 tab Q6H PRN PO 12/11/16 15:30 12/12/16 06:02 (Protonix) 40 mg DAILY PO 12/12/16 09:00 (Mana-Colace) 1 tab BID PO 12/11/16 21:00 12/11/16 21:33 A/P Problem List: (1) Facial cellulitis ICD Code: L03.211 Status: Acute (2) Leukocytosis ICD Code: D72.829 Status: Acute Assessment and Plan Severe facial cellulitis with abscess/ Sepsis HR elevated and with leukocytosis on admission. Maxillofacial CT w/IV contrast did not show abscess, only significant soft tissue swelling/cellulitis. Patient met sepsis criteria upon arrival with WBC 13.8K and tachycardic HR in 90s, however clinically stable and lactic acid 1.8. MRI was done which was concerning for loculated abscess. Oral surgery was consulted and the pt is s/p I &D 12/11. - Pain management with [place] prn and IV Dilaudid prn breakthrough pain. Continue Toradol. - Continue antibiotics IV clindamycin. - Monitor culture data. - continue IV Decadron 4mg q8h. - Tylenol as needed. - ID consulted by surgery. Anemia Possibly dilutional. - monitor. Thrombocytopenia Either dilutional or s/t infection. - monitor. Nicotine dependance The pt smokes 15 cigarettes daily. Has wheezing on exam. - cessation instruction. - patch deferred. - inhaler as needed. DVT prophylaxis: SCDs Discharge Planning Awaiting clinical improvement Zay Cruz DO Dec 12, 2016 08:47
[2016-12-12] MEDS: REMOVE OLD PATCH T-DERMAL SCH (09:00)
[2016-12-12] MEDS: NICOTINE 21 MG/24 HR PATCH T-DERMAL SCH (09:22)
[2016-12-12] MEDS: DOCUSATE SODIUM 50 MG/SENNA 8.6 MG TAB PO SCH ×2 (09:22→20:01)
[2016-12-12] MEDS: PANTOPRAZOLE SOD 40 MG DELAYED RELEASE TAB PO SCH (09:22)
[2016-12-12] MEDS: SODIUM CHLORIDE 0.9% FLUSH 10 ML FLUSH IV FLUSH SCH ×2 (09:23→22:10)
--- NOTE | 2016-12-12 09:25 | MP ---
cc: LOUISE MEDINA DMD DATE OF SURGERY December 11, 2016 PREOPERATIVE DIAGNOSIS Right facial cellulitis/abscess. POSTOPERATIVE DIAGNOSIS Right facial cellulitis/abscess. PROCEDURES Incision and drainage right facial cellulitis/abscess. ANESTHESIA 2% lidocaine with 1:100,000 epinephrine, approximately [address] Medina CUSTOM CLOTHIER The patient's nurse, Nurse Salvador. FINDINGS Pus is noted. COMPLICATIONS None. ESTIMATED BLOOD LOSS Minimal. SPECIMENS The pus was sent for culture. DRAINS 1/4-inch [place] drain was placed with a 2-0 silk suture. DISPOSITION The patient tolerated the procedure well. No complications. INDICATIONS FOR PROCEDURE This is a 36-year-old male who approximately 4 days ago popped a pimple on the right-side of his face, now presents with a cellulitis/abscess collection that is already slightly draining as per the patient. The collection appears to be under the skin; I can feel some area clinically. He is going to need an incision and drainage. The benefits, risks, indication for the procedure were all discussed with the patient. Consent is signed in the chart. PROCEDURE IN DETAIL The site on the right side was prepped with Betadine solution. 2% lidocaine and 1:100,000 epinephrine was injected over the area where I was going to make the incision and drainage right around the region where the crusty scab, right, somewhat lateral to that site. Once this was done, an 11-blade was used to make a stab incision into the site. Then a hemostat was used to gore right in the site and pus came out. Culture was done with a swab and then again with a blunt dissection with a hemostat superiorly, laterally, inferiorly, medially and until no more pus was coming out. At this point irrigation with saline solution was done. Finally, the 1/4-inch [place] drain was attached with 2-0 silk suture through the I&D site. Again another saline solution was used to drain the site. Gauze was placed and a dressing was placed over the site. The patient tolerated the procedure well. No complications noted. The purulence will be sent for culture. We will plan for Infectious Disease consult as I suspect this could be MRSA. Louise Medina DMD WASTEWATER TREATMENT OPERATOR/SSB /7:21 PM /9:21 AM
[2016-12-12 10:20] LABS: HEMATOCRIT 40.3 % (39.0-51.0); HEMO FLAGS DIFF FINAL; LYMPH % 6.6 % (9.0-44.0); LYMPHOCYTE # 0.9 TH/MM3 (1.0-4.8); MEAN CELL VOLUME 84.3 FL (80.0-100.0); MEAN CORPUSCULAR HEMOGLOBIN 28.7 PG (27.0-34.0); MEAN CORPUSCULAR HGB CONC 34.1 % (32.0-36.0); NEUT % 90.4 % (16.0-70.0); PLATELET COUNT 173 TH/MM3 (150-450); RED BLOOD COUNT 4.79 MIL/MM3 (4.50-5.90); RED CELL DISTRIBUTION WIDTH 13.3 % (11.6-17.2); WHITE BLOOD COUNT 14.4 TH/MM3 (4.0-11.0)
[2016-12-12 10:50] LABS: BICARBONATE 26.4 MEQ/L (21.0-32.0); POTASSIUM 4.3 MEQ/L (3.5-5.1)
[2016-12-12 12:00] VITALS: BP 127/79; PULSE 72; RESP 16; TEMP 97.6; O2SAT 98
--- NOTE | 2016-12-12 12:53 | HHI.PR ---
Subjective Remarks pod 1 s/p I&D right facial cellulitis /abscess pt seen and examined, AAOx3, nad reports feeling much better tolerating po well reports minimal discomfort at I&D site nurse at bedside Objective Vital Signs Date Time Temp Pulse Resp B/P Pulse Ox O2 Delivery O2 Flow Rate FiO2 12/12/16 12:00 97.6 72 16 127/79 98 12/12/16 08:00 96.8 62 16 108/60 99 12/12/16 04:00 96.0 58 18 121/69 98 12/12/16 00:00 97.3 63 18 112/59 93 12/11/16 20:00 98.1 67 17 138/72 97 12/11/16 19:30 18 12/11/16 19:30 18 12/11/16 19:30 18 12/11/16 16:00 98.9 67 20 142/84 98 I/O 12/11/16 12/11/16 12/11/16 12/12/16 12/12/16 12/12/16 07:00 15:00 23:00 07:00 15:00 23:00 Intake Total 720 ml 480 ml Balance 720 ml 480 ml Intake Oral 720 ml 480 ml # Voids 6 4 Result Diagram: 12/12/1690012/12/16 09 Other Results NO WBC'S SEEN FEW GRAM POSITIVE COCCI IN PAIRS AND CLUSTERS WOUND CULTURE Preliminary 12/12/16 HEAVY GROWTH S. AUREUS MRSA - SUSCEPTIBILITY TO FOLLOW This organism should be considered resistant to other Beta lactam agents, ie, penicillins, Beta-lactam/Beta-lactamase inhibitor combinations, carbapenems, and cephems (with the exception of cephalosporins with anti-MRSA activity). Objective Remarks significant reduction in right facial edema/erythema softer, no discharge noted minimal tenderness at surgical site no neck edema wesly drain Assessment and Plan Assessment and Plan s/p I&D right facial abscess/cellulitis MRSA NO WBC'S SEEN FEW GRAM POSITIVE COCCI IN PAIRS AND CLUSTERS WOUND CULTURE Preliminary 12/12/16 HEAVY GROWTH S. AUREUS MRSA - SUSCEPTIBILITY TO FOLLOW This organism should be considered resistant to other Beta lactam agents, ie, penicillins, Beta-lactam/Beta-lactamase inhibitor combinations, carbapenems, and cephems (with the exception of cephalosporins with anti-MRSA activity). ID consult pending, ID for d/c meds removed wesly drain OMS signing off, recall as required f/up prn dr medina [phone] Jhonathan Medina DMD Dec 12, 2016 12:53
[2016-12-12] MEDS ORDERED: LORazepam 0.5 MG TAB PO PRN (15:00)
[2016-12-12 16:00] VITALS: BP 131/74; PULSE 76; RESP 16; TEMP 99.3; O2SAT 98
[2016-12-12] MEDS ORDERED: Vancomycin Consult Pharmacy 1 EA OTHER SCH (19:00)
--- NOTE | 2016-12-12 19:09 | PD.ID.CON ---
History of Present Illness Service ID Consult Requested By Dr Medina Reason for Consult MRSA facial abscess Primary Care Physician No Primary Care Physician Diagnoses: History of Present Illness 36 yo male developped painful lump on his face, R cheek x 5 days He was seen at [facility] was prescribed Bactim, took coupe doses, but his swelling only got worse was getting worse to the point that his R eye was shut Developped some fevers chills When he presented to the hospital he was afebrile with moderately elevated WBC Dr Medina drainade the abscess at bedside, clx growing MRSA Blood clx from yday is + for gram+ cocci, not ID'd yet, 06/08 bottles only Review of Systems Except as stated in HPI: all other systems reviewed are Neg Past Family Social History Allergies: Coded Allergies: No Known Allergies (Unverified , 12/10/16) Past Medical History childhood asthma, but states he grew out of it. Past Surgical History Patient denies any surgical history Active Ordered Medications Medications where reviewed in EMR Antibiotics Include: clindamycin Family History Non-Contributory. Social History + 1PPD Tobacco. No ETOH. No Illicit Drugs. Physical Exam Vital Signs Vital Signs Date Time Temp Pulse Resp B/P Pulse Ox O2 Delivery O2 Flow Rate FiO2 12/12/16 16:00 99.3 76 16 131/74 98 12/12/16 12:00 97.6 72 16 127/79 98 12/12/16 08:00 96.8 62 16 108/60 99 12/12/16 04:00 96.0 58 18 121/69 98 12/12/16 00:00 97.3 63 18 112/59 93 12/11/16 20:00 98.1 67 17 138/72 97 12/11/16 19:30 18 12/11/16 19:30 18 12/11/16 19:30 18 Physical Exam CONSTITUTIONAL/GENERAL: This is an adequately nourished patient, in no apparent distress. TUBES/LINES/DRAINS: SKIN: No jaundice, rashes, or lesions. Skin temperature appropriate. Not diaphoretic. HEAD: Atraumatic. Normocephalic. Face R side edematous, moderaely, mildly erythematous, crusty lesion on the R cheek, no fluctuance, minimal serous d/c on the dressing EYES: No periorbital edema Pupils equal and round and reactive. Extraocular motions intact. No scleral icterus. No injection or drainage. Fundi not examined. ENT: Hearing grossly normal. Nose without bleeding or purulent drainage. Throat without visible erythema, exudates, masses, or lesions. NECK: Trachea midline. Supple, nontender. CARDIOVASCULAR: Regular rate and rhythm without murmurs, gallops, or rubs. No JVD. Peripheral pulses symmetric. RESPIRATORY/CHEST: Symmetric, unlabored respirations. . Breath sounds equal bilaterally. + wheezes the R base posteriorly, no rhonchi. GASTROINTESTINAL: Abdomen soft, non-tender, nondistended. No hepato-splenomegaly , or palpable masses. No guarding. Bowel sounds present. GENITOURINARY: Without palpable bladder distension. MUSCULOSKELETAL: Extremities without clubbing, cyanosis, or edema. No joint tenderness or effusion noted. No calf tenderness. No mottling or clubbing. LYMPHATICS: No palpable cervical or supraclavicular adenopathy. NEUROLOGICAL: Awake and alert. Motor and sensory grossly within normal limits. Follows commands. Clear speech. Moves all extremities. PSYCHIATRIC: No obvious anxiety/depression. no apparent hallucinations or other psychotic thought process. Laboratory Laboratory Tests Test 12/12/16 09:01 White Blood Count 14.4 Red Blood Count 4.79 Hemoglobin 13.8 Hematocrit 40.3 Mean Corpuscular Volume 84.3 Mean Corpuscular Hemoglobin 28.7 Mean Corpuscular Hemoglobin 34.1 Concent Red Cell Distribution Width 13.3 Platelet Count 173 Mean Platelet Volume 9.2 Neutrophils (%) (Auto) 90.4 Lymphocytes (%) (Auto) 6.6 Monocytes (%) (Auto) 3.0 Eosinophils (%) (Auto) 0.0 Basophils (%) (Auto) 0.0 Neutrophils # (Auto) 13.0 Lymphocytes # (Auto) 0.9 Monocytes # (Auto) 0.4 Eosinophils # (Auto) 0.0 Basophils # (Auto) 0.0 CBC Comment DIFF FINAL Differential Comment Sodium Level 136 Potassium Level 4.3 Chloride Level 100 Carbon Dioxide Level 26.4 Anion Gap 10 Blood Urea Nitrogen 17 Creatinine 0.80 Estimat Glomerular Filtration 110 Rate Random Glucose 122 Calcium Level 9.7 Date/Time Procedure Status Source Growth 12/11/16 19:00 Gram Stain - Final Resulted Wound Face 12/11/16 19:00 Wound Culture - Preliminary Resulted Wound Face NO GROWTH IN 24 HOURS. 7/9/17 19:00 Fungal Smear - Final Resulted Wound Face NO FUNGAL ELEMENTS SEEN. 12/11/16 19:00 Fungal Culture Resulted Wound Face Pending 12/11/16 19:00 Acid Fast Stain Received Wound Face Pending 12/11/16 19:00 Mycobacterial Culture Received Wound Face Pending 12/10/16 22:05 Aerobic Blood Culture - Preliminary Resulted Blood Peripheral NO GROWTH IN 2 DAYS 12/10/16 22:05 Anaerobic Blood Culture - Preliminary Resulted Gram Positive Cocci Result Diagram: 12/12/16 0901 12/12/16 0901 Imaging Last Impressions Face MRI 12/11/16 0000 Signed Impressions: Service Date/Time: Sunday, December 11, 2016 13:47 - CONCLUSION: 1. MR findings characteristic of extensive cellulitis in the right face/cheek region. 2. Small , 1.5 cm area of fluid signal intensity in the anterior right cheek which may represent a small abscess. This appears loculated. Korey Toledo MD Maxillofacial CT 12/10/16 0000 Signed Impressions: Service Date/Time: Sunday, December 11, 2016 00:27 - CONCLUSION: 1. No facial fracture Griffin Sung MD Assessment and Plan Assessment and Plan R cheek abscess, MRSA Low grade bactermia, gram + ? significance - awaiting coagulase test to conclude on clin significance Wheezing, rnochi L lung Fu bloood clx - if coag neg staph anticipate d/c on oral abx, if MRSA will need IV abx and further w/u depending how many bottles end up to be + - fu abscess clx - CXR - change clindamycin to vanco Discussed Condition With Pt his mom RN Dr Nancy Carlson,Susi Boss MD Dec 12, 2016 19:09
[2016-12-12 20:15] VITALS: BP 123/67; PULSE 76; RESP 16; TEMP 97.8; O2SAT 98
[2016-12-12] MEDS ORDERED: VANCOMYCIN 1,500 MG/NS 500 ML IV ONE ×2 (21:00)
[2016-12-13] VITALS: BP 115/62; PULSE 80; RESP 16; TEMP 98.1; O2SAT 98
[2016-12-13] MEDS: oxyCODONE/ACETAMINOPHEN 7.5 MG/325 MG TAB PO PRN ×5 (00:20→22:25)
[2016-12-13 04:00] VITALS: BP 125/64; PULSE 63; RESP 16; TEMP 96.9; O2SAT 96
[2016-12-13] MEDS ORDERED: VANCOMYCIN 1,500 MG/NS 500 ML IV SCH ×2 (05:00)
[2016-12-13] MEDS: KETOROLAC TROMETHAMINE 30 MG/ML (IVP) VIAL IV PUSH SCH ×3 (05:05→18:05)
[2016-12-13 08:00] VITALS: BP 115/70; PULSE 75; RESP 16; TEMP 97.6; O2SAT 100
[2016-12-13] MEDS: REMOVE OLD PATCH T-DERMAL SCH (08:58)
[2016-12-13] MEDS: NICOTINE 21 MG/24 HR PATCH T-DERMAL SCH (08:58)
[2016-12-13] MEDS: DOCUSATE SODIUM 50 MG/SENNA 8.6 MG TAB PO SCH ×2 (08:59→19:46)
[2016-12-13] MEDS: PANTOPRAZOLE SOD 40 MG DELAYED RELEASE TAB PO SCH (08:59)
[2016-12-13] MEDS ORDERED: OXYC1TAB35 PO (09:29)
--- NOTE | 2016-12-13 10:01 | HHI.PR ---
Subjective Remarks The patient was resting comfortably in bed. He said that his pain was much better. He says the drain was removed. He was looking forward to going home. He said his anxiety level was improved. Discussed with nursing. Objective Vitals Vital Signs Date Time Temp Pulse Resp B/P Pulse Ox O2 Delivery O2 Flow Rate FiO2 12/13/16 08:00 97.6 75 16 115/70 100 12/13/16 04:00 96.9 63 16 125/64 96 12/13/16 00:00 98.1 80 16 115/62 98 12/12/16 20:15 97.8 76 16 123/67 98 12/12/16 16:00 99.3 76 16 131/74 98 12/12/16 12:00 97.6 72 16 127/79 98 I/O 12/12/16 12/12/16 12/12/16 12/13/16 12/13/16 12/13/16 06:59 14:59 22:59 06:59 14:59 22:59 Intake Total 480 ml 840 ml 480 ml Balance 480 ml 840 ml 480 ml Intake Oral 480 ml 840 ml 480 ml # Voids 4 3 2 # Bowel Movements 1 Result Diagram: 12/12/16 0901 12/12/16 0901 Imaging Last Impressions Face MRI 12/11/16 0000 Signed Impressions: Service Date/Time: Sunday, December 11, 2016 13:47 - CONCLUSION: 1. MR findings characteristic of extensive cellulitis in the right face/cheek region. 2. Small , 1.5 cm area of fluid signal intensity in the anterior right cheek which may represent a small abscess. This appears loculated. Korey Toledo MD Maxillofacial CT 12/10/16 0000 Signed Impressions: Service Date/Time: Sunday, December 11, 2016 00:27 - CONCLUSION: 1. No facial fracture Griffin Sung MD Objective Remarks GENERAL: Well-nourished, well-developed patient in NAD. SKIN: Warm and dry. Swelling improved on the right side of face. Small wound where drain was placed. HEENT: Normocephalic. Atraumatic. Pupils equal and round. EOMI and nontender with movements. No injection or drainage. Mucous membranes pink and moist. NECK: Supple. Trachea midline. CARDIOVASCULAR: Regular rate and rhythm. S1, S2 noted. No murmur appreciated. RESPIRATORY: No accessory muscle use. Mild expiratory wheezing. GASTROINTESTINAL: Abdomen soft, non-tender, nondistended. Normoactive bowel sounds x4. MUSCULOSKELETAL: No obvious deformities. Extremities without clubbing, cyanosis , or edema. NEUROLOGICAL: Awake and alert. No obvious cranial nerve deficits. Motor grossly within normal limits. Normal speech. PSYCHIATRIC: Appropriate mood and affect; insight and judgment normal. Procedures I&D 12/11 Medications and IVs Current Medications Medications (Trade) Dose Ordered Sig/Julieta Route Start Time Stop Time Status Last Admin (NS Flush) 2 ml UNSCH PRN IV FLUSH 12/11/16 00:30 12/11/16 03:58 (NS Flush) 2 ml BID IV FLUSH 12/11/16 09:00 12/12/16 22:10 (Tylenol) 650 mg Q4H PRN PO 12/11/16 00:30 (Zofran Inj) 4 mg Q6H PRN IVP 12/11/16 00:30 (Tylenol) 650 mg Q6H PRN PO 12/11/16 00:30 (Narcan Inj) 0.4 mg UNSCH PRN IV 12/11/16 00:30 (Milk Of Magnesia Liq) 30 ml Q12H PRN PO 12/11/16 00:30 (Senokot) 17.2 mg Q12H PRN PO 12/11/16 00:30 (Dulcolax Supp) 10 mg DAILY PRN RECTAL 12/11/16 00:30 (Lactulose Liq) 30 ml DAILY PRN PO 12/11/16 00:30 (Toradol Inj) 15 mg Q6HR IV PUSH 12/11/16 12:00 12/15/16 11:59 12/13/16 05:05 ([place]ers 5-325 Mg) 1 tab Q4H PRN PO 12/11/16 10:15 (Habitrol 21 Mg Patch.24 Hr) 1 patch DAILY T-DERMAL 12/11/16 11:30 12/12/16 09:22 Miscellaneous Information 1 DAILY T-DERMAL 12/11/16 11:30 12/12/16 09:00 (Protonix) 40 mg DAILY PO 12/12/16 09:00 12/13/16 08:59 (Mana-Colace) 1 tab BID PO 12/11/16 21:00 12/13/16 08:59 (Percocet 7.5-325 Mg) 1 tab Q4H PRN PO 12/12/16 11:30 12/13/16 08:58 Lorazepam 0.5 mg 0.5 mg Q8HR PRN PO 12/12/16 15:00 12/12/16 14:50 Pharmacy Profile Note 0 ml @ 0 mls/hr UNSCH OTHER 12/12/16 19:00 (Vancomycin Inj/ NS 500 ml Inj) 515 ml @ 257.5 mls/ hr Q8H IV 12/13/16 05:00 12/13/16 05:06 Miscellaneous Information SPECIFIC LAB TO BE [facility]... ONCE ONCE .XX 12/13/16 20:45 12/13/16 20:46 A/P Problem List: (1) Facial cellulitis ICD Code: L03.211 Status: Acute (2) Leukocytosis ICD Code: D72.829 Status: Acute Assessment and Plan Severe facial cellulitis with abscess/ Sepsis HR elevated and with leukocytosis on admission. Maxillofacial CT w/IV contrast did not show abscess, only significant soft tissue swelling/cellulitis. Patient met sepsis criteria upon arrival with WBC 13.8K and tachycardic HR in 90s, however clinically stable and lactic acid 1.8. MRI was done which was concerning for loculated abscess. Oral surgery was consulted and the pt is s/p I &D 12/11. Benkelman drain has been removed. / blood culture bottles positive for GPC. ID consult appreciated. - Pain management with Percocet prn and Toradol. - Continue antibiotics. IV clindamycin changed to vancomycin by ID. - Monitor culture data. Awaiting speciation of blood culture bottle. - d/c IV Decadron. - Tylenol as needed. Nicotine dependance The pt smokes 15 cigarettes daily. Has wheezing on exam. - cessation instruction. - patch deferred. - inhaler as needed. DVT prophylaxis: SCDs Discharge Planning Awaiting ID clearance. Possibly d/c later today. Zay Cruz DO Dec 13, 2016 10:01
[2016-12-13 12:00] VITALS: BP 119/72; PULSE 64; RESP 18; TEMP 96.9; O2SAT 99
[2016-12-13] MEDS: SODIUM CHLORIDE 0.9% FLUSH 10 ML FLUSH IV FLUSH SCH ×2 (12:34→19:47)
[2016-12-13 16:28] VITALS: BP 146/72; PULSE 75; RESP 18; TEMP 97.9; O2SAT 96
[2016-12-13] MEDS: VANCOMYCIN 1,500 MG/NS 500 ML IV SCH ×2 (16:37)
--- NOTE | 2016-12-13 19:11 | HHI.PR ---
Addendum to Inpatient Note Additional Information Repeat blood clx orfdered will see if more + blood clx Anticipate discharge tomorrow unless more + blood clx ' 2 D echo Susi Carlson MD Dec 13, 2016 19:11
[2016-12-13 20:00] VITALS: BP 150/79; PULSE 66; RESP 16; TEMP 98.1; O2SAT 98
[2016-12-14] VITALS: BP 113/61; PULSE 59; RESP 16; TEMP 96.8; O2SAT 97
[2016-12-14 04:00] VITALS: BP 101/65; PULSE 63; RESP 16; TEMP 96.9; O2SAT 96
[2016-12-14] MEDS: VANCOMYCIN 1,500 MG/NS 500 ML IV SCH ×4 (04:57→16:49)
[2016-12-14] MEDS: KETOROLAC TROMETHAMINE 30 MG/ML (IVP) VIAL IV PUSH SCH ×5 (04:57→23:20)
[2016-12-14] MEDS: oxyCODONE/ACETAMINOPHEN 7.5 MG/325 MG TAB PO PRN ×5 (05:27→21:43)
[2016-12-14 08:00] VITALS: BP 134/80; PULSE 55; RESP 14; TEMP 97.3; O2SAT 100
[2016-12-14] MEDS: PANTOPRAZOLE SOD 40 MG DELAYED RELEASE TAB PO SCH (08:16)
[2016-12-14] MEDS: REMOVE OLD PATCH T-DERMAL SCH (08:21)
[2016-12-14] MEDS: SODIUM CHLORIDE 0.9% FLUSH 10 ML FLUSH IV FLUSH SCH ×2 (08:21→21:44)
[2016-12-14] MEDS: NICOTINE 21 MG/24 HR PATCH T-DERMAL SCH (08:21)
[2016-12-14] MEDS: DOCUSATE SODIUM 50 MG/SENNA 8.6 MG TAB PO SCH ×2 (08:21→21:42)
--- NOTE | 2016-12-14 09:24 | HHI.PR ---
Subjective Remarks The patient said that his face pain feels worse when he wakes up in the morning and is sleeping on the side that is affected. He is able to eat. He says that overnight he had left lung pain. He said it was located on the left flank area and lasted about an hour. He is currently lung pain free. He is ambulating and breathing comfortably. Discussed with nursing. Objective Vitals Vital Signs Date Time Temp Pulse Resp B/P Pulse Ox O2 Delivery O2 Flow Rate FiO2 12/14/16 08:00 97.3 55 14 134/80 100 12/14/16 04:00 96.9 63 16 101/65 96 12/14/16 00:00 96.8 59 16 113/61 97 12/13/16 20:00 98.1 66 16 150/79 98 12/13/16 18:05 16 12/13/16 16:37 16 12/13/16 16:28 97.9 75 18 146/72 96 12/13/16 13:46 16 12/13/16 12:00 96.9 64 18 119/72 99 I/O 12/13/16 12/13/16 12/13/16 12/14/16 12/14/16 12/14/16 07:00 15:00 23:00 07:00 15:00 23:00 Intake Total 480 ml 1200 ml 800 ml Balance 480 ml 1200 ml 800 ml Intake Oral 480 ml 1200 ml 300 ml IV Total 500 ml # Voids 2 4 2 # Bowel Movements 1 0 Result Diagram: 12/12/16 0901 12/14/16 0637 Imaging Last Impressions Face MRI 12/11/16 0000 Signed Impressions: Service Date/Time: Sunday, December 11, 2016 13:47 - CONCLUSION: 1. MR findings characteristic of extensive cellulitis in the right face/cheek region. 2. Small , 1.5 cm area of fluid signal intensity in the anterior right cheek which may represent a small abscess. This appears loculated. Korey Toledo MD Maxillofacial CT 12/10/16 0000 Signed Impressions: Service Date/Time: Sunday, December 11, 2016 00:27 - CONCLUSION: 1. No facial fracture Griffin Sung MD Objective Remarks GENERAL: Well-nourished, well-developed patient in NAD. SKIN: Warm and dry. Swelling improved on the right side of face. Small wound where drain was placed. HEENT: Normocephalic. Atraumatic. Pupils equal and round. EOMI and nontender with movements. No injection or drainage. Mucous membranes pink and moist. NECK: Supple. Trachea midline. CARDIOVASCULAR: Regular rate and rhythm. S1, S2 noted. No murmur appreciated. RESPIRATORY: No accessory muscle use. Mild expiratory wheezing. GASTROINTESTINAL: Abdomen soft, non-tender, nondistended. Normoactive bowel sounds x4. MUSCULOSKELETAL: No obvious deformities. Extremities without clubbing, cyanosis , or edema. NEUROLOGICAL: Awake and alert. No obvious cranial nerve deficits. Motor grossly within normal limits. Normal speech. PSYCHIATRIC: Appropriate mood and affect; insight and judgment normal. Procedures I&D 12/11 Medications and IVs Current Medications Medications (Trade) Dose Ordered Sig/Julieta Route Start Time Stop Time Status Last Admin (NS Flush) 2 ml UNSCH PRN IV FLUSH 12/11/16 00:30 12/11/16 03:58 (NS Flush) 2 ml BID IV FLUSH 12/11/16 09:00 12/14/16 08:21 (Tylenol) 650 mg Q4H PRN PO 12/11/16 00:30 (Zofran Inj) 4 mg Q6H PRN IVP 12/11/16 00:30 (Tylenol) 650 mg Q6H PRN PO 12/11/16 00:30 (Narcan Inj) 0.4 mg UNSCH PRN IV 12/11/16 00:30 (Milk Of Magnesia Liq) 30 ml Q12H PRN PO 12/11/16 00:30 (Senokot) 17.2 mg Q12H PRN PO 12/11/16 00:30 (Dulcolax Supp) 10 mg DAILY PRN RECTAL 12/11/16 00:30 (Lactulose Liq) 30 ml DAILY PRN PO 12/11/16 00:30 (Toradol Inj) 15 mg Q6HR IV PUSH 12/11/16 12:00 12/15/16 11:59 12/14/16 04:57 ([place] 5-325 Mg) 1 tab Q4H PRN PO 12/11/16 10:15 (Habitrol 21 Mg Patch.24 Hr) 1 patch DAILY T-DERMAL 12/11/16 11:30 12/12/16 09:22 Miscellaneous Information 1 DAILY T-DERMAL 12/11/16 11:30 12/12/16 09:00 (Protonix) 40 mg DAILY PO 12/12/16 09:00 12/14/16 08:16 (Mana-Colace) 1 tab BID PO 12/11/16 21:00 12/13/16 08:59 (Percocet 7.5-325 Mg) 1 tab Q4H PRN PO 12/12/16 11:30 12/14/16 05:27 Lorazepam 0.5 mg 0.5 mg Q8HR PRN PO 12/12/16 15:00 12/12/16 14:50 (Vancomycin Consult Pharmacy) 0 ml @ 0 mls/hr UNSCH OTHER 12/12/16 19:00 Miscellaneous Information SPECIFIC LAB TO BE JORDAN... ONCE ONCE .XX 12/14/16 16:45 12/14/16 16:46 Oxycodone HCl 5 mg 5 mg Q4H PRN PO 12/13/16 11:00 12/14/16 08:18 (Vancomycin Inj/ NS 500 ml Inj) 515 ml @ 257.5 mls/ hr Q12H IV 12/13/16 17:00 12/14/16 04:57 A/P Problem List: (1) Facial cellulitis ICD Code: L03.211 Status: Acute (2) Leukocytosis ICD Code: D72.829 Status: Acute Assessment and Plan Severe facial cellulitis with abscess/ Sepsis/ Bacteremia HR elevated and with leukocytosis on admission. Maxillofacial CT w/IV contrast did not show abscess, only significant soft tissue swelling/cellulitis. Patient met sepsis criteria upon arrival with WBC 13.8K and tachycardic HR in 90s, however clinically stable and lactic acid 1.8. MRI was done which was concerning for loculated abscess. Oral surgery was consulted and the pt is s/p I &D 12/11. Karin drain has been removed. 06/08 blood culture bottles positive for MRSA. ID consult appreciated. - Pain management with Percocet prn and Toradol. - Continue antibiotics. IV clindamycin changed to vancomycin by ID. - Monitor culture data. Repeat cultures pending. - d/c IV Decadron. - Tylenol as needed. - echo pending. Nicotine dependance/ Dyspnea The pt smokes 15 cigarettes daily. Has wheezing on exam. He complained of lung discomfort lasting about an hour. - CXR pending. - cessation instruction. - patch deferred. - oxygen and inhaler as needed. DVT prophylaxis: SCDs Discharge Planning Awaiting ID clearance. Possibly d/c later today. Zay Cruz DO Dec 14, 2016 09:24
--- NOTE | 2016-12-14 10:06 | RADRPT ---
EXAM DATE/TIME: 12/14/2016 09:26 [facility] COMPARISON: CHEST SINGLE AP, October 17, 2016, 14:29. INDICATIONS : Dyspnea. MEDICAL HISTORY : Asthma. Smoker. SURGICAL HISTORY : None. ENCOUNTER: Initial ACUITY: 2 days PAIN SCORE: 0/10 LOCATION: Bilateral chest FINDINGS: 2 frontal views of the chest demonstrate the lungs to be symmetrically aerated without evidence of ma ss, infiltrate or effusion. The cardiomediastinal contours are unremarkable. Osseous structures are intact. CONCLUSION: Normal examination. Anthony Gates Jr., MD on December 14, 2016 at 10:04 Board Certified Radiologist. This report was verified electronically.
[2016-12-14 12:00] VITALS: BP 163/82; PULSE 55; RESP 14; TEMP 97.8; O2SAT 98
[2016-12-14 16:00] VITALS: BP 135/75; PULSE 58; RESP 22; TEMP 98; O2SAT 100
[2016-12-14] MEDS ORDERED: PHARMACY ORDERED LAB ONE (16:45)
[2016-12-14 20:00] VITALS: BP 127/73; PULSE 73; RESP 16; TEMP 98.9; O2SAT 97
--- NOTE | 2016-12-14 22:23 | HHI.IDPN ---
Subjective Subjective Remarks face doing better afebrile repeat bl clx neg @ 1 day Antibiotics vancomycin Allergies: Coded Allergies: *MDRO Multi-Drug Resistant Organism (Verified Adverse Reaction, Unknown, ) MRSA (face) 12/11/16, MRSA (blood) 12/10/16 Objective . Vital Signs Date Time Temp Pulse Resp B/P Pulse Ox O2 Delivery O2 Flow Rate FiO2 12/14/16 20:00 98.9 73 16 127/73 97 12/14/16 19:09 16 12/14/16 19:09 16 12/14/16 18:16 16 12/14/16 16:00 98.0 58 22 135/75 100 12/14/16 12:00 97.8 55 14 163/82 98 12/14/16 08:00 97.3 55 14 134/80 100 12/14/16 04:00 96.9 63 16 101/65 96 12/14/16 00:00 96.8 59 16 113/61 97 12/13/16 12/13/16 12/14/16 15:00 23:00 07:00 Intake Total 1200 ml 800 ml Balance 1200 ml 800 ml Intake Oral 1200 ml 300 ml IV Total 500 ml # Voids 4 2 # Bowel Movements 1 0 . Laboratory Tests Test 12/14/16 06:37 Creatinine 0.74 MG/DL Estimat Glomerular Filtration 120 ML/MIN Rate Microbiology Date/Time Procedure Status Source Growth 12/13/16 13:03 Aerobic Blood Culture - Preliminary Resulted Blood Peripheral NO GROWTH IN 1 DAY 12/13/16 13:03 Anaerobic Blood Culture - Preliminary Resulted Blood Peripheral NO GROWTH IN 1 DAY 12/13/16 13:10 Aerobic Blood Culture - Preliminary Resulted Blood Peripheral NO GROWTH IN 1 DAY 12/13/16 13:10 Anaerobic Blood Culture - Preliminary Resulted Blood Peripheral NO GROWTH IN 1 DAY Imaging Last Impressions Chest X-Ray 12/14/16 0000 Signed Impressions: Service Date/Time: Wednesday, December 14, 2016 09:26 - CONCLUSION: Normal examination. Anthony Gates Jr., MD Face MRI 12/11/16 0000 Signed Impressions: Service Date/Time: Sunday, December 11, 2016 13:47 - CONCLUSION: 1. MR findings characteristic of extensive cellulitis in the right face/cheek region. 2. Small , 1.5 cm area of fluid signal intensity in the anterior right cheek which may represent a small abscess. This appears loculated. Korey Toledo MD Maxillofacial CT 12/10/16 0000 Signed Impressions: Service Date/Time: Sunday, December 11, 2016 00:27 - CONCLUSION: 1. No facial fracture Griffin Sung MD Physical Exam CONSTITUTIONAL/GENERAL: This is an adequately nourished patient, in no apparent distress. TUBES/LINES/DRAINS: SKIN: No jaundice, rashes, or lesions. Skin temperature appropriate. Not diaphoretic. HEAD: Face R side edematous, moderaely, mildly erythematous, crusty lesion on the R cheek, no fluctuance, minimal serous d/c on the dressing EYES: No periorbital edema Pupils equal and round and reactive. Extraocular motions intact. No scleral icterus. No injection or drainage. Fundi not examined. CARDIOVASCULAR: Regular rate and rhythm without murmurs, gallops, or rubs. No JVD. Peripheral pulses symmetric. RESPIRATORY/CHEST: Symmetric, unlabored respirations. . Breath sounds equal bilaterally. + wheezes the R base posteriorly, no rhonchi. GASTROINTESTINAL: Abdomen soft, non-tender, nondistended. No hepato-splenomegaly , or palpable masses. No guarding. Bowel sounds present. MUSCULOSKELETAL: Extremities without clubbing, cyanosis, or edema. NEUROLOGICAL: Awake and alert. Motor and sensory grossly within normal limits. Follows commands. Clear speech. Moves all extremities. PSYCHIATRIC: No obvious anxiety/depression. no apparent hallucinations or other psychotic thought process. Assessment & Plan Remarks R cheek abscess, MRSA Low grade bactermia, MRSA -repeat blood clx neg @ 1 day - awaiting 2 D echo Wheezing, rnochi L lung - CXR is uneremarkable If repeat blood clx and 2 D echo negative will get PICC and dc on IV vancomycin x 2 weeks, If echo or repeat blood clx + will need long course of abx dw pt Susi Carlson MD Dec 14, 2016 22:23
[2016-12-15] VITALS: BP 120/68; PULSE 66; RESP 16; TEMP 98; O2SAT 92
[2016-12-15 04:00] VITALS: BP 118/64; PULSE 60; RESP 16; TEMP 96.5; O2SAT 98
[2016-12-15] MEDS: VANCOMYCIN 1,500 MG/NS 500 ML IV SCH ×2 (05:11)
[2016-12-15] MEDS: oxyCODONE/ACETAMINOPHEN 7.5 MG/325 MG TAB PO PRN ×4 (05:12→20:16)
[2016-12-15] MEDS: KETOROLAC TROMETHAMINE 30 MG/ML (IVP) VIAL IV PUSH SCH (05:12)
[2016-12-15 08:00] VITALS: BP 120/74; PULSE 50; RESP 18; TEMP 96.4; O2SAT 98
[2016-12-15] MEDS: SODIUM CHLORIDE 0.9% FLUSH 10 ML FLUSH IV FLUSH SCH ×2 (08:57→20:20)
[2016-12-15] MEDS: NICOTINE 21 MG/24 HR PATCH T-DERMAL SCH (08:57)
[2016-12-15] MEDS: REMOVE OLD PATCH T-DERMAL SCH (08:57)
[2016-12-15] MEDS: PANTOPRAZOLE SOD 40 MG DELAYED RELEASE TAB PO SCH (09:12)
[2016-12-15] MEDS: DOCUSATE SODIUM 50 MG/SENNA 8.6 MG TAB PO SCH ×2 (09:12→20:47)
--- NOTE | 2016-12-15 11:54 | ECHRPT ---
Indication: vegetations CONCLUSIONS Mild mitral valve regurgitation. There is mild tricuspid valve regurgitation. The estimated pulmonary arterial pressure is 27 mmHg.Normal left ventricular size and wall thickness . The left ventricular systolic function is normal with an estimated ejection fraction in the range of 60- 65%. Left ventricular diastolic function parameters are normal. BP: 101 / 65 HR: 63 Rhythm: Sinus MEASUREMENTS (Male / Female) Normal Values Technical Quality:Good DOPPLER MR Peak Velocity 346.5 cm/s MR Peak Gradient 48.0 mmHg TR Peak Velocity 208.0 cm/s TR Peak Gradient 17.3 mmHg FINDINGS LEFT VENTRICLE Normal left ventricular size and wall thickness. The left ventricular systolic function is normal wi th an estimated ejection fraction in the range of 60-65%. Left ventricular diastolic function parameters a re normal. RIGHT VENTRICLE Normal right ventricular size and systolic function. LEFT ATRIUM The left atrial size is normal. RIGHT ATRIUM The right atrial size is normal. ATRIAL SEPTUM Normal atrial septal thickness without atrial level shunting by limited color doppler interrogation. AORTA The aortic root and proximal ascending aorta are normal in size on limited imaging. MITRAL VALVE Mild mitral valve regurgitation. AORTIC VALVE Trileaflet aortic valve. No aortic valve stenosis or regurgitation. TRICUSPID VALVE There is mild tricuspid valve regurgitation. The estimated pulmonary arterial pressure is 27 mmHg. PULMONARY VALVE The pulmonary valve is not well visualized. VESSELS The inferior vena cava is normal in size. PERICARDIUM No pericardial effusion. Choco Mitchell MD, FACC (Electronically Signed) Final Date:15 December 2016 11:53
[2016-12-15 12:00] VITALS: BP 138/85; PULSE 64; RESP 18; TEMP 98.9; O2SAT 100
--- NOTE | 2016-12-15 13:39 | HHI.FF ---
Infusion Therapy Location of Infusion Therapy: Home Health Care IV Infusion Order Patient Information Patient Weight 90.7 kg Diagnosis: Diagnosis MRSA sepsis Coded Allergies: *MDRO Multi-Drug Resistant Organism (Verified Adverse Reaction, Unknown, ) MRSA (face) 12/11/16, MRSA (blood) 12/10/16 Administer Medication Vancomycin q 12 hours 1750 mg IV Start Treatment: Dec 16, 2016 Stop Treatment: Dec 27, 2016 Additional Information Venous access: PICC Line Additional Instructions [x] Peripheral flush and dressing changes per protocol [x] Implanted port and central online user experience strategist: * Implanted port: 10 ml Normal Saline followed by 5 ml Heparin 100 units/ml Heparin flush after each use and monthly to maintain. [] May leave port accessed during therapy. [] May leave peripheral site accessed for duration of therapy. [x] If patient has SOB or respiratory distress, check oxygen saturation. If less than 90% or clinical signs of respiratory distress, administer oxygen at 2 L/min. via nasal cannula and notify physician. [x] Anaphylaxis/Reaction orders: * Stop infusion. * Keep IV line open with saline flush. * Notify physician. * Monitor vital signs every 15 minutes until symptoms resolve. * Check Oxygen saturation; Oxygen at 2 L/min. via nasal cannula if less than 90% or clinical signs of respiratory distress. * Administer diphenhydramine (Benadryl) 25 mg IV STAT, (unless patient has received as pre-med). May repeat once, if necessary. * Solu-Cortef 250 mg IVP over 30-60 seconds, use 100 mg vials for each dissolution. * Epinephrine (1mg/1 ml) 0.3 mg subcutaneously or IVP now with any signs of respiratory distress. * Check with physician for new additional pre-med orders if patient is re- challenged or re-treated. [x] May remove PICC line when treatment complete, after confirming with Physician. [x] If the patient is admitted to the hospital, the ED, or transferred via [facility] , complete transfer form including medication reconciliation order sheet. Laboratory Tests Weekly Labs: CBC w/diff, Creatinine, Vancomycin Trough Susi Carlson MD Dec 15, 2016 13:39
[2016-12-15] MEDS ORDERED: VANC1000P IV (13:40)
[2016-12-15] MEDS ORDERED: SOLU250I IV PUSH (13:40)
[2016-12-15] MEDS ORDERED: EPIN1INJ21 IV PUSH (13:40)
[2016-12-15] MEDS ORDERED: EPIN1INJ21 SQ (13:40)
--- NOTE | 2016-12-15 14:11 | HHI.PR ---
Subjective Remarks The pt was feeling well. He was anxious to go home. Pain is improved. He had questions about the PICC line. Discussed with case investigator. Objective Vitals Vital Signs Date Time Temp Pulse Resp B/P Pulse Ox O2 Delivery O2 Flow Rate FiO2 12/15/16 12:00 98.9 64 18 138/85 100 12/15/16 08:00 96.4 50 18 120/74 98 12/15/16 06:12 16 12/15/16 06:12 16 12/15/16 04:00 96.5 60 16 118/64 98 12/15/16 00:17 16 12/15/16 00:00 98.0 66 16 120/68 92 12/14/16 20:00 98.9 73 16 127/73 97 12/14/16 16:00 98.0 58 22 135/75 100 I/O 12/14/16 12/14/16 12/14/16 12/15/16 12/15/16 12/15/16 07:00 15:00 23:00 07:00 15:00 23:00 Intake Total 800 ml 480 ml 260 ml 450 ml 480 ml Balance 800 ml 480 ml 260 ml 450 ml 480 ml Intake Oral 300 ml 480 ml 260 ml 450 ml 480 ml IV Total 500 ml # Voids 2 5 2 2 # Bowel Movements 0 1 0 0 Result Diagram: 12/12/16 0901 12/14/16 0637 Imaging Last Impressions Chest X-Ray 12/14/16 0000 Signed Impressions: Service Date/Time: Wednesday, December 14, 2016 09:26 - CONCLUSION: Normal examination. Anthony Gates Jr., MD Face MRI 12/11/16 0000 Signed Impressions: Service Date/Time: Sunday, December 11, 2016 13:47 - CONCLUSION: 1. MR findings characteristic of extensive cellulitis in the right face/cheek region. 2. Small , 1.5 cm area of fluid signal intensity in the anterior right cheek which may represent a small abscess. This appears loculated. Korey Toledo MD Maxillofacial CT 12/10/16 0000 Signed Impressions: Service Date/Time: Sunday, December 11, 2016 00:27 - CONCLUSION: 1. No facial fracture Griffin Sung MD Objective Remarks GENERAL: Well-nourished, well-developed patient in NAD. SKIN: Warm and dry. Swelling improved on the right side of face. Small wound where drain was placed. HEENT: Normocephalic. Atraumatic. Pupils equal and round. EOMI and nontender with movements. No injection or drainage. Mucous membranes pink and moist. NECK: Supple. Trachea midline. CARDIOVASCULAR: Regular rate and rhythm. S1, S2 noted. No murmur appreciated. RESPIRATORY: No accessory muscle use. Mild expiratory wheezing. GASTROINTESTINAL: Abdomen soft, non-tender, nondistended. Normoactive bowel sounds x4. MUSCULOSKELETAL: No obvious deformities. Extremities without clubbing, cyanosis , or edema. NEUROLOGICAL: Awake and alert. No obvious cranial nerve deficits. Motor grossly within normal limits. Normal speech. PSYCHIATRIC: Appropriate mood and affect; insight and judgment normal. Procedures I&D 12/11 Medications and IVs Current Medications Medications (Trade) Dose Ordered Sig/Julieta Route Start Time Stop Time Status Last Admin (NS Flush) 2 ml UNSCH PRN IV FLUSH 12/11/16 00:30 12/11/16 03:58 (NS Flush) 2 ml BID IV FLUSH 12/11/16 09:00 12/14/16 21:44 (Tylenol) 650 mg Q4H PRN PO 12/11/16 00:30 (Zofran Inj) 4 mg Q6H PRN IVP 12/11/16 00:30 (Tylenol) 650 mg Q6H PRN PO 12/11/16 00:30 (Narcan Inj) 0.4 mg UNSCH PRN IV 12/11/16 00:30 (Milk Of Magnesia Liq) 30 ml Q12H PRN PO 12/11/16 00:30 (Senokot) 17.2 mg Q12H PRN PO 12/11/16 00:30 (Dulcolax Supp) 10 mg DAILY PRN RECTAL 12/11/16 00:30 (Lactulose Liq) 30 ml DAILY PRN PO 12/11/16 00:30 ([place] 5-325 Mg) 1 tab Q4H PRN PO 12/11/16 10:15 (Habitrol 21 Mg Patch.24 Hr) 1 patch DAILY T-DERMAL 12/11/16 11:30 12/12/16 09:22 Miscellaneous Information 1 DAILY T-DERMAL 12/11/16 11:30 12/12/16 09:00 (Protonix) 40 mg DAILY PO 12/12/16 09:00 12/14/16 08:16 (Mana-Colace) 1 tab BID PO 12/11/16 21:00 12/14/16 21:42 (Percocet 7.5-325 Mg) 1 tab Q4H PRN PO 12/12/16 11:30 12/15/16 11:08 Lorazepam 0.5 mg 0.5 mg Q8HR PRN PO 12/12/16 15:00 12/12/16 14:50 (Vancomycin Consult Pharmacy) 0 ml @ 0 mls/hr UNSCH OTHER 12/12/16 19:00 (Roxicodone) 5 mg Q4H PRN PO 12/13/16 11:00 12/14/16 23:20 Miscellaneous Information SPECIFIC LAB TO BE DRAWN:VANCO TROUGH DATE TO BE DRMeir.. ONCE ONCE .XX 12/17/16 04:45 12/17/16 04:46 (Vancomycin Inj/ NS 500 ml Inj) 517.5 ml @ 257.5 mls/ hr Q12H IV 12/15/16 17:00 A/P Problem List: (1) Facial cellulitis ICD Code: L03.211 Status: Acute (2) Leukocytosis ICD Code: D72.829 Status: Acute Assessment and Plan Severe facial cellulitis with abscess/ Sepsis/ Bacteremia HR elevated and with leukocytosis on admission. Maxillofacial CT w/IV contrast did not show abscess, only significant soft tissue swelling/cellulitis. Patient met sepsis criteria upon arrival with WBC 13.8K and tachycardic HR in 90s, however clinically stable and lactic acid 1.8. MRI was done which was concerning for loculated abscess. Oral surgery was consulted and the pt is s/p I &D 12/11. [place] drain has been removed. 06/08 blood culture bottles positive for MRSA. ID consult appreciated. Echo with normal EF, no evidence of vegetation. - Pain management with Percocet prn and Toradol. - Continue antibiotics. IV clindamycin changed to vancomycin by ID. Vancomycin 1.75 g IV q 12 hours, stop date Dec 27, 2016. Home antibiotics being set-up by case investigator. PICC line ordered. - Monitor culture data. Repeat cultures pending. - d/c IV Decadron. - Tylenol as needed. Nicotine dependance/ Dyspnea The pt smokes 15 cigarettes daily. Has wheezing on exam. He complained of lung discomfort lasting about an hour. CXR normal. - cessation instruction. - patch deferred. - oxygen and inhaler as needed. DVT prophylaxis: SCDs Discharge Planning D/c when home antibiotics are arranged Zay Cruz DO Dec 15, 2016 14:11
--- NOTE | 2016-12-15 14:20 | HHI.DCPOC ---
Discharge Care Plan Diagnosis: (1) Facial cellulitis (2) Leukocytosis (3) Bacteremia Goals to Promote Your Health * To prevent worsening of your condition and complications * To maintain your health at the optimal level Directions to Meet Your Goals Take your medications as prescribed Follow your dietary instruction Follow activity as directed Keep your appointments as scheduled Take your immunizations and boosters as scheduled If your symptoms worsen call your PCP, if no PCP go to Urgent Care Center or Emergency Room Smoking is Dangerous to Your Health. Avoid second hand smoke Call the 24-hour hour crisis hotline for domestic abuse at Zay Cruz DO Dec 15, 2016 14:20
--- NOTE | 2016-12-15 14:21 | HHI.FF ---
Face to Face Verification Diagnosis: (1) Bacteremia (2) Facial cellulitis (3) Leukocytosis Home Health Nursing Order: Medical education Signs/symptoms of disease process Medication education-adverse effect Wound care and dressing changes Nursing assessment with vital signs IV medication administration I have seen patient Clement Bazan on 12/15/16. My clinical findings support the need for the requested home health care services because: Infection w/ risk of complications Injectable med education/admin I certify that my clinical findings support that this patient is homebound because: Need for psychosocial assistance Zay Cruz DO Dec 15, 2016 14:21
[2016-12-15 15:33] LABS: AUTOMATED NEUTROPHIL # 3.4 TH/MM3 (1.8-7.7); BASOPHIL # 0.1 TH/MM3 (0-0.2); BASOPHIL % 0.9 % (0.0-2.0); EOSINOPHIL # 0.4 TH/MM3 (0-0.4); HEMATOCRIT 43.6 % (39.0-51.0); HEMO FLAGS DIFF FINAL; LYMPH % 36.4 % (9.0-44.0); LYMPHOCYTE # 2.6 TH/MM3 (1.0-4.8); MEAN CELL VOLUME 84.5 FL (80.0-100.0); MEAN CORPUSCULAR HGB CONC 33.1 % (32.0-36.0); MONO % 9.1 % (0.0-8.0); NEUT % 47.6 % (16.0-70.0); PLATELET COUNT 220 TH/MM3 (150-450); RED BLOOD COUNT 5.16 MIL/MM3 (4.50-5.90); RED CELL DISTRIBUTION WIDTH 13.1 % (11.6-17.2); WHITE BLOOD COUNT 7.1 TH/MM3 (4.0-11.0)
--- NOTE | 2016-12-15 15:44 | HHI.DS ---
Discharge Summary Admission Date Dec 11, 2016 at 11:23 Discharge Date: Dec 15, 2016 Admitting Diagnosis FACIAL ABSCESS (1) Facial cellulitis ICD Code: L03.211 Diagnosis: Principal (2) Leukocytosis ICD Code: D72.829 (3) Bacteremia ICD Code: R78.81 Diagnosis: Principal Procedures I&D 12/11 Brief History - From Admission Written by Victoria Soriano, acting as scribe for Dr. Wilson] on 12/11/16 at 00: 47. 36 y/o male with no medical history presents to the ED with complaints of right cheek swelling and pain. Patient states he has a pimple that he tried to pop and his face began to swell. [facility] and was diagnosed with cellulitis and sent home on Bactrim. Patient states he took 2 doses and the pain worsened so he came here. He only has noticed a little clear discharge when he tried to pop it. Denies any fevers, but states he has had chills. Denies any chest pain, or sob. CBC/BMP: 12/15/16 1451 12/14/16 0637 Significant Findings Laboratory Tests Test 12/14/16 12/15/16 16:00 14:51 Vancomycin Level Trough 11.6 MCG/ML (5.0-10.0) Monocytes (%) (Auto) 9.1 % (0.0-8.0) Eosinophils (%) (Auto) 6.0 % (0.0-4.0) Imaging Last Impressions Chest X-Ray 12/14/16 0000 Signed Impressions: Service Date/Time: Wednesday, December 14, 2016 09:26 - CONCLUSION: Normal examination. Anthony Gates Jr., MD Face MRI 12/11/16 0000 Signed Impressions: Service Date/Time: Sunday, December 11, 2016 13:47 - CONCLUSION: 1. MR findings characteristic of extensive cellulitis in the right face/cheek region. 2. Small , 1.5 cm area of fluid signal intensity in the anterior right cheek which may represent a small abscess. This appears loculated. Korey Toledo MD Maxillofacial CT 12/10/16 0000 Signed Impressions: Service Date/Time: Sunday, December 11, 2016 00:27 - CONCLUSION: 1. No facial fracture Griffin Sung MD PE at Discharge GENERAL: Well-nourished, well-developed patient in NAD. SKIN: Warm and dry. Swelling improved on the right side of face. Small wound where drain was placed. HEENT: Normocephalic. Atraumatic. Pupils equal and round. EOMI and nontender with movements. No injection or drainage. Mucous membranes pink and moist. NECK: Supple. Trachea midline. CARDIOVASCULAR: Regular rate and rhythm. S1, S2 noted. No murmur appreciated. RESPIRATORY: No accessory muscle use. Mild expiratory wheezing. GASTROINTESTINAL: Abdomen soft, non-tender, nondistended. Normoactive bowel sounds x4. MUSCULOSKELETAL: No obvious deformities. Extremities without clubbing, cyanosis , or edema. NEUROLOGICAL: Awake and alert. No obvious cranial nerve deficits. Motor grossly within normal limits. Normal speech. PSYCHIATRIC: Appropriate mood and affect; insight and judgment normal. Hospital Course Severe facial cellulitis with abscess/ Sepsis/ Bacteremia HR elevated and with leukocytosis on admission. Maxillofacial CT w/IV contrast did not show abscess, only significant soft tissue swelling/cellulitis. Patient met sepsis criteria upon arrival with WBC 13.8K and tachycardic HR in 90s, however clinically stable and lactic acid 1.8. MRI was done which was concerning for loculated abscess. Oral surgery was consulted and the pt is s/p I &D 12/11. [place] drain has been removed. / blood culture bottles positive for MRSA. ID was consulted. Echo with normal EF, no evidence of vegetation. He received pain management with Percocet prn and Toradol. He was continued on antibiotics. IV Decadron was discontinued. IV clindamycin changed to vancomycin. He will be discharged on vancomycin 1.75 g IV q 12 hours, stop date Dec 27, 2016. Home antibiotics being set-up by case operator. PICC line ordered. Repeat cultures NGTD. He will have a weekly CBC w/ diff, vancomycin trough and creatinine checked. He will follow with oral surgery as an outpt. Nicotine dependance/ Dyspnea The pt smokes 15 cigarettes daily. Has wheezing on exam. CXR normal. He received cessation instruction. He deferred a nicotine patch. He received inhalers as needed. Pt Condition on Discharge: Good Discharge Disposition: Disch w/ Home Health Serv Discharge Time: > 30 minutes Discharge Instructions DIET: Follow Instructions for: As Tolerated, No Restrictions Activities you can perform: Regular-No Restrictions Follow up Referrals: Oral Maxillary Surgery with Jhonathan Medina DMD PCP Follow-up - 1 Week New Orders: CBC WITH DIFF - 1 Week CREATININE - 1 Week VANCOMYCIN TROUGH - 1 Week New Medications: Epinephrine Inj (Epinephrine Inj) 1 Mg/Ml Inj 0.3 MG IV PUSH ONCE PRN ALLERGIC REACTION #1 VIAL Epinephrine Inj (Epinephrine Inj) 1 Mg/Ml Inj 0.3 MG SQ ONCE Give with any signs of respiratory distress. PRN ALLERGIC REACTION #1 VIAL Hydrocortisone Inj (Solu-Cortef Inj) 250 Mg Inj 250 MG IV PUSH ONCE Give over 30-60 seconds. PRN ALLERGIC REACTION #1 Ref 0 VIAL Vancomycin Inj (Vancomycin Inj) 1,000 Mg Inj 1750 MG IV Q12HR Infection Days 12 Ref 0 BAG Oxycodone-Acetaminophen (Oxycodone-Acetaminophen) 7.5-325 mg Tab 1 TAB PO Q6HR PRN pain #20 TAB Continued Medications: Albuterol 8.5 GM Inh (Proair Hfa 8.5 GM Inh) 90 Mcg/Act Aer 2 PUFF INH Q6H 108 mcg/actuation PRN SHORTNESS OF BREATH #1 Ref 0 INHALER Discontinued Medications: Azithromycin (Azithromycin) 250 Mg Tab 250 MG PO DIRECTED Take 2 tabs (500 mg) on day 1 then 1 tab daily x 4 days. Infection #6 Ref 0 TAB Zay Cruz DO Dec 15, 2016 15:44
[2016-12-15 16:50] VITALS: BP 133/83; PULSE 63; RESP 18; TEMP 97.5; O2SAT 99
[2016-12-15] MEDS ORDERED: VANCOMYCIN INJ 1,750 MG in SODIUM CHLORID 0.9% 500 ML INJ 500 ML IV SCH (17:00)
--- NOTE | 2016-12-15 19:03 | RADRPT ---
EXAM DATE/TIME: 12/15/2016 18:28 [facility] COMPARISON: CHEST SINGLE AP, December 14, 2016, 9:26. INDICATIONS : PICC line placement MEDICAL HISTORY : Cellulitis SURGICAL HISTORY : None. ENCOUNTER: Initial ACUITY: 1 day PAIN SCORE: Non-responsive. LOCATION: Right chest FINDINGS: The lungs are clear without infiltrate, nodule, or mass. There is no appreciable pleural effusion fo r technique. Heart and mediastinum are unremarkable. Right subclavian PICC line is present with tip overlapping the expected region of the SVC. CONCLUSION: No acute cardiopulmonary disease. Cruz Alicia MD on December 15, 2016 at 19:01 Board Certified Radiologist. This report was verified electronically.
[2016-12-15] MEDS ORDERED: SODIUM CHLORIDE 0.9% FLUSH 10 ML FLUSH IV FLUSH PRN (19:15)
[2016-12-15 20:00] VITALS: BP 126/79; PULSE 71; RESP 16; TEMP 98.4; O2SAT 94
[2016-12-17] MEDS ORDERED: PHARMACY ORDERED LAB ONE (04:45)
== END 2016-12-15 21:44 | disposition home or self-care (01) | DRG 872 ==
LOC: NEPC 21:02 → NEDA 12-11 00:27 → NEPHCDU 12-11 01:38 → OBSVTOIN 12-11 11:23 → HOCA 12-11 15:29
PROVIDERS: ADMIT Hospitalist; ATTEND Hospitalist
PROC: 0H91X0Z Drainage of Face Skin with Drainage Device, External Approach (ICD-10-PCS; principal; 2016-12-11)
DX: A41.9 Sepsis, unspecified organism (principal); D69.6 Thrombocytopenia, unspecified; L02.01 Cutaneous abscess of face; L03.211 Cellulitis of face; F41.9 Anxiety disorder, unspecified; J45.909 Unspecified asthma, uncomplicated; F63.81 Intermittent explosive disorder; F17.210 Nicotine dependence, cigarettes, uncomplicated; F12.90 Cannabis use, unspecified, uncomplicated; B95.62 Methicillin resistant Staphylococcus aureus infection as the cause of diseases classified elsewhere; D64.9 Anemia, unspecified
CPT/HCPCS: 36569; 70487; 70543; 71010; 76937; 80048; 80053; 80202; 82565; 83605; 85025; 86403; 87015; 87040; 87070; 87102; 87116; 87147; 87186; 87205; 87206; 93308; 96374; 96375; A9579; J1100; J1170; J1885; J2405; J3370; J7030; J7040; Q9967

== ENCOUNTER → 2016-12-22 | Outpatient (CLI) | payer SELFPAY ==
[~2016-12-22] MED LIST changes: -AZIT250T3 PO; +EPIN1INJ21 IV PUSH; +EPIN1INJ21 SQ; +OXYC1TAB35 PO; +SOLU250I IV PUSH; +VANC1000P IV
[2016-12-22 15:52] LABS: VANCOMYCIN TROUGH 17.9 MCG/ML (5.0-10.0)
== END ==
LOC: CLAB 15:10
PROVIDERS: ATTEND Hospitalist
DX: L03.211 Cellulitis of face (principal)
CPT/HCPCS: 36415; 80202; 82565